=== PATIENT | male | born 1930 | race Caucasian/White ===

== ENCOUNTER → 2016-12-22 | Outpatient (CLI) | payer MEDICARE | END | disposition home or self-care (01) | LOC: GMAL 11:09 | PROVIDERS: ATTEND Family Medicine | DX: E03.8 Other specified hypothyroidism (principal) ==

== ENCOUNTER → 2017-01-13 | Outpatient (CLI) | payer MEDICARE ==
--- NOTE | 2017-01-13 11:50 | MRI ---
Study: MRI of the Brain, Internal Auditory Canal Protocol. Indication: HEADACHE. Right-sided hearing loss. Technique: Multiplanar, multi sequence MRI of the brain obtained with and without intravenous contrast utilizing the internal auditory canal protocol. Comparison: None. Findings: The bilateral internal auditory canals, cerebellopontine angles, and VII/VIII cranial nerve root complexes appear normal. No pathologic enhancement. No MRI evidence of acute ischemia, acute hemorrhage, mass, mass effect, midline shift, or extra-axial fluid collection. Ventricles are normal in configuration without hydrocephalus. Patchy elevated T2/FLAIR signal abnormality is seen within the periventricular and subcortical white matter. Although nonspecific, this finding is most consistent with chronic microvascular ischemic change. Global parenchymal volume loss noted as well. Midline structures are intact. Scattered paranasal sinus mucosal disease with opacification of the frontal sinuses and anterior ethmoid air cells. Large bilateral mastoid effusions. Osseous structures and soft tissues demonstrate normal signal characteristics. Impression: Normal MRI appearance of the bilateral internal auditory canals. Senescent changes. Large bilateral mastoid effusions. Scattered paranasal sinus mucosal disease. Electronically signed by: Nnamdi Palomo MD 01/13/2017 11:49 AM XRAY TECH
== END | disposition home or self-care (01) ==
LOC: MRI 07:53
PROVIDERS: ATTEND Family Medicine
DX: R51 Headache (principal)

== ENCOUNTER → 2017-02-14 | Outpatient (CLI) | payer MEDICARE | END | disposition home or self-care (01) | LOC: GMAL 10:41 | PROVIDERS: ATTEND Family Medicine | DX: E03.8 Other specified hypothyroidism (principal) ==

== ENCOUNTER → 2017-02-22 | Outpatient (CLI) | payer MEDICARE ==
--- NOTE | 2017-02-23 11:08 | US ---
EXAM DESCRIPTION: Extremity,Lower Rommel Arteries CLINICAL HISTORY: 86 years Male, PVD Grayscale, spectral Doppler and color Doppler imaging of the arteries within the right lower extremity was performed. No abrupt occlusion with any arterial vessel of the right or left lower extremity. Atherosclerotic disease is noted. Triphasic and biphasic waveforms noted within bilateral lower extremities. Peak systolic velocities are noted in likely within normal IMPRESSION: While there is atherosclerotic disease on today's study there is no abrupt occlusion on today's exam to account for patient's symptoms. Electronically signed by: Shabbir Damon MD 02/23/2017 11:08 AM CDT
== END | disposition home or self-care (01) ==
LOC: RAD 14:44
PROVIDERS: ATTEND Surgery
DX: I73.9 Peripheral vascular disease, unspecified (principal)

== ENCOUNTER → 2017-06-01 | Outpatient (CLI) | payer MEDICARE | LOC: GMAL 16:42 | PROVIDERS: ATTEND Family Medicine | DX: E03.8 Other specified hypothyroidism (principal); R60.0 Localized edema ==

== ENCOUNTER 2017-11-06 12:05 | Inpatient (IN) | payer MEDICARE ==
[2017-11-06] MEDS ORDERED: SODIUM CHLORIDE 0.9% 1000ML 1,000 ML IVS ONE (13:08)
--- NOTE | 2017-11-06 13:13 | ED.PDOC ---
History of Present Illness - General Chief Complaint: General Stated Complaint: Weakness, change in demeanor, R hand swelling Time Seen by Provider: 11/06/17 12:13 Source: RN notes reviewed, Vital Signs reviewed, family Exam Limitations: clinical condition - confused and very hard of hearing - History of Present Illness Initial Comments: reports that 4-5 days ago he started getting very confused, "in [place] ", along with frequent falls and difficulty with his balance. He also has a painful, swollen R forearm and hand from falling into a wall about 4 days ago. She reports normally he is "normal", no confusion, normal gait and normal activities of daily living w/o need for assistance. Now needs to hold onto someone just to walk down the [place]ez. Decreased appetite. Did start with a cold ~ 2 weeks ago. He is diabetic but reports his blood sugars at home have been 80-120's. Timing/Duration: getting worse Severity: severe Improving Factors: nothing Worsening Factors: movement Associated Symptoms: loss of appetite, malaise, weakness Allergies/Adverse Reactions: Allergies NO KNOWN ALLERGY Allergy (Verified 09/21/14 06:39) Home Medications: Ambulatory Orders Insulin Glargine 100U/ml [Lantus] 6 unit SUBCU DAILY 09/21/14 Furosemide [Lasix] 40 mg PO DAILY 11/06/17 Levothyroxine Sodium [Synthroid] 200 mcg PO DAILY 11/06/17 Potassium Chloride [Micro-K] 10 meq PO DAILY 11/06/17 Review of Systems - Review of Systems Constitutional: States: see HPI, malaise, weakness EENTM: States: no symptoms reported Respiratory: States: no symptoms reported Cardiology: States: no symptoms reported Gastrointestinal/Abdominal: States: no symptoms reported Musculoskeletal: States: see HPI Skin: States: no symptoms reported Neurological: States: see HPI, weakness, other - loss of balance and confusion Hematologic/Lymphatic: Denies: easy bleeding, easy bruising All other Systems: No Change from Baseline Past Medical History (General) - Patient Medical History Hx Seizures: No Hx Stroke: No Hx Asthma: No Hx of COPD: No Hx Cardiac Disorders: Yes Hx Congestive Heart Failure: No Hx Pacemaker: No Hx Hypertension: Yes Hx Thyroid Disease: Yes Hx Diabetes: Yes Hx Cancer: Yes - lymphoma Hx MRSA: No Surgical History: other - Vaccination History Hx Tetanus, Diphtheria Vaccination: Yes Hx Influenza Vaccination: No Hx Pneumococcal Vaccination: No - Social History Hx Tobacco Use: No - Quit around 1949 - social use Hx Alcohol Use: No Hx Substance Use: No Hx Physical Abuse: No Hx Emotional Abuse: No Family Medical History - Family History Father Family History: No Known Living Status: Age at (years of age): 70 Cause of : alzeimers Mother Living Status: Age at (years of age): 70 Hx Family Cancer: Yes - lung Physical Exam - Physical Exam General Appearance: Comfortable - but confused, Ill Appearing, Unkempt Ears, Nose, Throat: hearing decreased - extremely hard of hearing, other - dry mucous membranes Neck: supple, normal inspection Respiratory: lungs clear, normal breath sounds, no respiratory distress, no accessory muscle use Cardiovascular/Chest: regular rate, rhythm, no edema, no gallop, no murmur Gastrointestinal/Abdominal: normal bowel sounds, non tender, soft, no organomegaly, no pulsatile mass, hernia - easily reducable ventral hernia Extremity: normal range of motion, swelling - R forearm from elbow to fingers - swollen, warm, erythematous and tender Neurologic: disoriented x 3 Skin Exam: normal color, warm/dry Comments: Vital Signs 11/06/17 12:43 Temperature 98.9 F Pulse Rate [ 110 H Left Radial] Respiratory 22 Rate Blood Pressure 114/52 [Right Arm] Progress - Progress Progress: 11/06/17 14:57 Discussed with MAGNO Quezada - will admit for observation - Results/Orders Results/Orders: 11/06/17 13:08 IV Care:Saline Lock per Protoc QSHIFT 11/06/17 13:49 KCl 40 Meq/Water For Injection [Potassium 40meq in Water 100ml] 40 meq Premix Bag 1 bag IVPB ONCE Laboratory Results - last 24 hr 11/06/17 11/06/17 11/06/17 13:14 13:14 13:29 WBC 12.7 H RBC 4.84 Hgb 13.4 L Hct 39.1 L MCV 80.7 MCH 27.6 MCHC 34.2 RDW 14.7 H Plt Count 352 MPV 7.7 Absolute Neuts (auto) 12.30 H Absolute Lymphs (auto) 0.30 L Absolute Monos (auto) 0.10 L Absolute Eos (auto) 0.00 Absolute Basos (auto) 0.00 Neutrophils % 96.6 H Lymphocytes % 2.3 L Monocytes % 1.0 L Eosinophils % 0.0 L Basophils % 0.1 Sodium 139 Potassium 2.9 L Chloride 97 L Carbon Dioxide 28 Anion Gap 16.9 BUN 43 H Creatinine 1.77 H BUN/Creatinine Ratio 24.3 H Random Glucose 257 H Serum Osmolality 297.2 H Calcium 8.1 L Total Bilirubin 2.1 H* AST 73 H ALT 48 Alkaline Phosphatase 73 Serum Total Protein 6.4 Albumin 2.7 L Globulin 3.7 H Albumin/Globulin Ratio 0.7 L TSH 7.10 H Urine Color Yellow Urine Appearance Clear Urine pH 6.0 Ur Specific [place] 1.020 Urine Protein 100 H Urine Glucose (UA) 250 H Urine Ketones Trace Urine Blood Large H Urine Nitrite Negative Urine Bilirubin Small H Urine Urobilinogen 2.0 H Ur Leukocyte Esterase Negative Urine RBC 20-30 H Urine WBC 0 Ur Epithelial Cells 0 Urine Bacteria 0 - EKG/XRAY/CT XRAY: forearm - No fracture per Radiologist CT Ordered: Yes - Head: no acute changes - Additional EKG/XRAY/Consults XRAY #2: hand - No fracture per Rad Departure - Departure Clinical Impression: Confusion and disorientation, Dehydration, Hyperbilirubinemia, Hypokalemia UTI (urinary tract infection) Qualifiers: Urinary tract infection type: acute cystitis Hematuria presence: with hematuria Qualified Code(s): N30.01 - Acute cystitis with hematuria Time of Disposition: 14:57 Disposition: Admit Patient Condition: Poor Departure Forms: ED Discharge - Pt. Copy, Patient Portal Self Enrollment Referrals: Giorgio Escobedo III, MD [Primary Care Provider] - 1-2 Weeks Home Medications: Ambulatory Orders Insulin Glargine 100U/ml [Lantus] 6 unit SUBCU DAILY 09/21/14 Furosemide [Lasix] 40 mg PO DAILY 11/06/17 Levothyroxine Sodium [Synthroid] 200 mcg PO DAILY 11/06/17 Potassium Chloride [Micro-K] 10 meq PO DAILY 11/06/17 Decision To Admit - Decistion To Admit Decision to Admit Reason: Admit from ER Decision to Admit Date: 11/06/17 Decision to Admit Time: 14:55
[2017-11-06] MEDS ORDERED: KCL 40 MEQ/WATER FOR INJECTION 40 MEQ in PREMIX BAG 1 BAG IVPB ONE (13:49)
[2017-11-06] MEDS ORDERED: KCL 40 MEQ/WATER FOR INJECTION 100 ML IVPB ONE (14:04)
--- NOTE | 2017-11-06 14:32 | RAD ---
EXAM DESCRIPTION: Forearm,Right CLINICAL HISTORY: 87 years Male, tenderness swellling s/p fall COMPARISON: None. TECHNIQUE: AP and lateral views FINDINGS: Osteopenia. No fractures identified. There are vascular calcifications. IMPRESSION: No fractures Electronically signed by: Jeff Concepcion 11/06/2017 2:30 PM [facility]
--- NOTE | 2017-11-06 14:42 | RAD ---
EXAM DESCRIPTION: Hand,Right 3 Views CLINICAL HISTORY: 87 years Male, tenderness swellling s/p fall COMPARISON: None. TECHNIQUE: 3 views FINDINGS: Nonspecific sclerotic changes within distal radius and ulna. Likely chronic in nature. 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 No acute fractures are seen. Vascular calcifications. IMPRESSION: No acute fractures. Incidental findings as noted above Electronically signed by: Jeff Concepcion 11/06/2017 2:[address] [facility]
--- NOTE | 2017-11-06 14:48 | CT ---
EXAM DESCRIPTION: Head CLINICAL HISTORY: 87 years Male, confusion w/ frequent falls COMPARISON: None. TECHNIQUE: Axial imaging. No IV contrast. Sagittal and coronal reconstruction FINDINGS: Extensive periventricular white matter enteropathic changes. There is diffuse cortical atrophy. No masses are seen. There is no evidence of intracranial hemorrhage. Ventricular structures are nondilated. Mild bilateral ethmoid mucosal thickening, moderate mucosal thickening sphenoid sinus, moderate mucosal thickening left maxillary sinus, moderate mucosal thickening frontal sinuses. IMPRESSION: Diffuse cortical atrophy Extensive white matter microangiopathic changes. Sinus disease as referenced above Electronically signed by: Jeff Concepcion 11/06/2017 2:47 PM [facility]
--- NOTE | 2017-11-06 15:18 | HP ---
SUPERVISING PHYSICIAN: Simone Sotomayor M.D. CHIEF COMPLAINT: Increasing weakness with multiple falls and acute mental status change. HISTORY OF PRESENT ILLNESS: Mr. Marin is an 87 year-old male patient that was brought to the Emergency Room today by his because the patient was having 4 or 5 days of confusion. She quotes he was [place] and has been having frequent falls and difficulty with his balance. It was also noted that he had fallen and hit his arm at some point and his right forearm, hand and elbow were swollen for the last 4 days. His notes that the patient normally is not confused, has a normal gait and is able to do most of his daily activities without any assistance. He has now progressed to the point where he has to hold onto something just to walk and has a severe decreased appetite. In the Emergency Room, initial laboratory studies showed that he had a leukocytosis at 12,700 with a left shift. Hemoglobin 13.4, hematocrit 39.1. Chemistries showed mild hypokalemia with potassium 2.9 and renal insufficiency with a BUN of 43, creatinine 1.7. Also of note was a bilirubin that was elevated at 2.1 with AST 73. He also had hypothyroidism by history and is on supplementation, and it was noted on labs in the E. R. that his TSH was 7.1. Urinalysis showed a large amount of blood, bilirubin and urobilinogen along with glucose and protein with microscopic showing 20 to 30 RBCs, no WBCs, epithelials or bacteria were seen. On admission to the Emergency Room, he was shown to be afebrile with a temperature of 98.9. Blood pressure 114/52, heart rate 110 with saturation showing to be 90 on room air. A head CT was also completed during his stay in the E. R. and per radiology interpretation of a noncontrast CT there was note of diffuse cortical atrophy with extensive white matter microangiopathic changes along with sinus disease but no evidence of any intracranial hemorrhage or masses seen. He had a hand and forearm x-ray of the right upper extremity due to the ongoing cellulitis and recent fall with no evidence of acute fractures per radiology interpretation. The patient also has a history of type 2 diabetes mellitus and is on insulin therapy and on initial presentation to the Emergency Room showed a glucose of 257. Dr. Christopher, E. R. physician, requested that the patient be admitted to the hospital for further evaluation and ongoing treatment of the underlying dehydration as well as concerns for an infectious process with uncertain etiology. The patient now is going to be admitted to the Medical/ Surgical floor. He was admitted in stable condition. The patient was a poor historian and no one was available to provide a history, therefore most of the history was obtained from clinic charts. PAST MEDICAL HISTORY: 1. Hyperlipidemia. 2. Hypertension with grade 1 diastolic dysfunction and ejection fraction of 55 % on echo of May 2017. 3. Peripheral vascular disease. 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 5. Hepatitis in 1962. 6. [place] disease, a rare [id number] histiocytosis. 7. Type 2 diabetes mellitus on insulin therapy. 8. Hypothyroidism diagnosed in 1977 after an iodine 131 ablation with the patient on supplementation. 9. History of shingles to the left chest. 10. Non-Hodgkin's lymphoma diagnosed in 2006 treated initially with radiation and recurrence with diffuse lymphadenopathy as noted on CT scans in 2012 with treatment with Rituxan. 11. Macular degeneration. 12. 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 MEDICAL PROVIDERS: Oncologist - Dr. Rey Owens in [place] Primary care provider - Dr. Escobedo PAST SURGICAL HISTORY: 1. Bilateral cataract removal. 2. Bilateral carotid endarterectomy in 2005. 3. Right lymph node excision complicated by a seroma following radiation treatments for non-Hodgkin's lymphoma. 4. Left knee arthroscopy with partial medial meniscectomy and ablation chondroplasty in 2008. 5. 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 CURRENT MEDICATIONS: 1. Synthroid 0.2 mg 1 tablet daily. 2. Potassium chloride 10 mEq extended release 2 tablets daily. 3. Crestor 10 mEq 1/4 tablet daily. 4. Lantus 5 units subcue AM. 5. Lasix 40 mg tablets daily. 6. Vitamin B12 100 mcg every other day. 7. Omzu-wpm-kwonvxe iron supplementation. ALLERGIES: NO KNOWN DRUG ALLERGIES. FAMILY HISTORY: The patient's father is at age 81 secondary to diabetes and cardiovascular disease. Mother at age 69 from metastatic cancer of unknown origin. He had 3 sisters, 2 are from colon cancer and 1 from alcoholism, smoking, COPD and TB. He has several paternal uncles with diabetes and amputations. 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 He was in the [employer] from 1949 to 1953 serving in [facility] and [place]. He is and has 2 children. He resides in [place], [place]. He has a history of smoking 2 to 3 packs a day for 16 years and quit at age 35. He does have a history of drinking while he was in the , but is no longer drinking. REVIEW OF SYSTEMS: CONSTITUTIONAL: As noted in History of Present Illness, general malaise and weakness with multiple falls. In looking at his past admissions and current admission, he has had a weight loss of approximately 33 pounds over the last 3 years. HEENT: No acute changes, but has a history of hearing deficits with a mixed conductive and sensorineural hearing loss. No nasal drainage, nasal congestion , headaches, vision changes or sore throat. RESPIRATORY: Denies any shortness of breath, dyspnea, cough. CARDIOVASCULAR: Denies any chest pains, palpitations or syncopal episodes. GASTROINTESTINAL: Decreased appetite. Denies any nausea, vomiting, diarrhea, constipation or melena. MUSCULOSKELETAL: As noted in history of present illness, pain and swelling to right upper extremity secondary to a fall with some localized cellulitis. NEUROLOGIC: As noted in History of Present Illness with weakness and loss of balance and confusion. PHYSICAL EXAMINATION: VITAL SIGNS: Temperature 98.9, pulse 110, blood pressure 110/52, respirations 22, satting 90% on room air. Admission weight is 64.5 kg with a body mass index of 20.4. GENERAL: On admission to the Medical/Surgical floor, the patient appears to be comfortable. He is pleasantly confused and very unkempt and frail. Very malnourished in appearance. HEENT: He has decreased hearing bilaterally. Oropharynx shows severely dry mucous membranes but no lesions. NECK: Supple, non-tender with full range of motion. There was no jugular venous distention. CHEST: Lungs were clear to auscultation without any rhonchi, wheezing or rales. CARDIOVASCULAR: Regular rate and rhythm without any appreciable murmurs, gallops, or rubs. ABDOMEN: Thin, non-tender, soft with a pulsatile mass and hernia noted, a ventral hernia that is easily reducible with no notable pain or guarding or rebound tenderness. EXTREMITIES: Upper extremity right forearm and elbow and fingers are edematous , very erythematous and tender with no obvious skin breakdown. NEUROLOGIC: He is disoriented times three but pleasantly confused. Cranial nerves II-XII are grossly intact. Facial features were symmetrical. Extraocular movements are within normal limits. There was no notable nystagmus. LABORATORY: White count showed a leukocytosis of 12,700 with hemoglobin 13.4, hematocrit 39.1, platelet count 352,000. Differential did show a left shift. Chemistries showed hyponatremia with potassium 2.9, sodium 139, anion gap was 16 , BUN 43, creatinine 1.7, glucose 257, serum osmolality 297, calcium 8.1 but albumin was 2.7, magnesium 2.0. Total bilirubin was elevated at 2.1 with AST of 73 slightly elevated with a normal ALT, alkaline phosphatase was 73. Ammonia level was less than 6. Troponin was 0.05. BNP was elevated at 223 with TSH of 7.1. Pancreatic enzymes showed amylase at 26, lipase of less than 14. Urinalysis showed 100 protein, 250 glucose, large amount of blood, small bilirubin, 2.0 urobilinogen with microscopic showing 20 to 30 RBCs, no WBCs, epithelials or bacteria were noted. MICROBIOLOGY: Urine culture is pending. Blood culture is pending. Sputum culture pending. Strep screen pending. Influenza A and B by PCR pending. RADIOLOGY: X-rays of the right forearm and hand per radiology interpretation showed no acute findings of acute fractures or dislocations. Please see that report for more details. He also had a CT of the head without contrast and per radiology interpretation there was note of diffuse cortical atrophy with extensive white matter microangiopathic changes and sinus disease as noted. Refer to that report for full details. Chest x-ray after admission to the Medical/Surgical floor singe view chest per radiology interpretation showed prominence of right hilar shadow maybe secondary to vascular shadows, however recommended a CT chest to exclude a malignancy. There was also note of a scattered patchy airspace disease concerning for multifocal pneumonia. ASSESSMENT: 1. Leukocytosis with radiographic evidence concerning for multifocal pneumonia likely community acquired. 2. Severe dehydration secondary to poor oral intake and malnutrition. 3. Altered mental status secondary to dehydration and malnutrition complicated by diffuse cortical atrophy and extensive white matter microangiographic changes noted on CT. 4. Acute cystitis with microhematuria. 5. Multiple falls within the last week likely secondary to severe deconditioning, malnutrition and dehydration. 6. Cellulitis of the right arm and elbow secondary to acute trauma from a fall with no radiographic evidence of acute fractures. 7. Acute on chronic renal insufficiency with prerenal azotemia secondary to dehydration. 8. Elevated liver enzymes, uncertain etiology but possibly related to dehydration. 9. Hypothyroidism on supplementation with an elevated TSH. 10. Electrolyte imbalance with moderate hypokalemia. 11. Type 2 diabetes on insulin. 12. History of non-Hodgkin's lymphoma in 2006 with treatment with radiation and recurrence and diffuse lymphadenopathy in 2012 treated with Rituxan. 13. Hypertension with grade 1 diastolic dysfunction with an ejection fraction of 55% noted on echo in May 2017. 14. History of [place] disease, a rare mtv-Urkaixgiau-fmsl histiocytosis. 15. Macular degeneration, complications of type 2 diabetes mellitus. 16. 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 17. Severe pancreatic lipomatosis as noted on MRI colonography in December 2014 likely resulting in malabsorption and weight loss, poor appetite with the patient having decreased amylase and lipase and albumin on admission. 18. Weight loss of over 33 pounds within the last 3 years, uncertain etiology. 19. History of small volvulus with approximately 50 inches resection in 2013. PLAN: The patient is going to be admitted to the Medical/Surgical floor for further evaluation and ongoing treatment. Given that he has some radiographic evidence of a multifocal pneumonia in the presence of leukocytosis, I have started him on Rocephin initially with 2 grams to be followed-up with 2 grams every 24 hours as well as I will put him on some Azithromycin and coverage for the cellulitis as well as he has probably got a high risk for MRSA. He will be on vancomycin per Pharmacy protocol. In regards to his dehydration and malnutrition, I have started him on a banana bag with thiamine every 24 hours and his IV fluids will be half normal saline with 20 of potassium with total volume to run at 120 an hour, to reassess in the morning with his output. Given his severe dehydration and state of health on admission, a Hurt catheter will be placed to closely monitor his I's and O's. Will start him on insulin sliding scale per protocol. Will resume his home medications as appropriate once those have been verified and updated in the electronic medical records. He will be on DVT prophylaxis as per protocol. Blood cultures have been completed prior to antibiotic administration. Will await sputum cultures, Influenza and Strep cultures to further help target antibiotic therapy. At some point, he will need a Physical Therapy evaluation. In regards to his malnutrition, will encourage oral intake and start him on a high calorie diet, and possibly need to consider maybe starting him on some Megace for some assistance with his appetite. Will estimate his length of stay to be at least 2 to 3 days. Will plan to repeat laboratory studies in the morning as well as a chest x-ray. Given the findings of prominence of the right hilar shadow, recommendations for a CT to include malignancy will need to be pursued at some point. Certainly given his multiple co-morbidities, living status with a who is just as debilitated as he is and his multiple falls and ongoing health problems, certainly need to get Assistant To The Ceo on discharge planning with anticipation of probably needing to either discharge to a assisted facility, long term versus physical therapy rehab. Until discharge, will continue to monitor the patient closely and treat appropriately. #[id number] [facility]
[2017-11-06] MEDS ORDERED: DEXTROSE 50% 25 GM/50 ML SYG IV PRN (16:35)
[2017-11-06] MEDS ORDERED: GLUCAGON INJ 1 MG VIAL SUBCU PRN (16:35)
[2017-11-06] MEDS ORDERED: cefTRIAXone SODIUM 2 GM in SODIUM CHL 0.9% 100ML MINI-BAG 100 ML IVPB ONE (17:22)
[2017-11-06] MEDS: IV SET AND CAP CHANGE INJ INJ SCH (18:25)
[2017-11-06] MEDS ORDERED: SODIUM CHL 0.9% 100ML MINI-BAG 100 ML IVPB ONE (18:26)
[2017-11-06] MEDS ORDERED: VANCOMYCIN PER PHARMACY IVPB SCH (18:30)
--- NOTE | 2017-11-06 19:04 | PCM.CORE ---
Physician DVT/VTE - Nurse DVT Assessment & Total Each Risk Factor Represents 3 Points: Age over 75 years Each Risk Factor Represents 2 Points: Malignancy (present/past) Each Risk Factor is 1 Point: Varicose Veins/Edema Legs, Serious Lung disease ( pnemonia <1month, COPD, emphysema,etc) DVT Assessment Score: 7 - 5 or more Very High Risk Treatments: Early Ambulation *, Sequential Compression Device Pharmacological: Enoxaparin 40mg SQ Daily
[2017-11-06] MEDS ORDERED: MULTIPLE VITAMIN INJ 10 ML, THIAMINE HCL INJ 100 MG in SODIUM CHLORIDE 0.9% 1000ML 1,00... IVS SCH (19:30)
[2017-11-06] MEDS ORDERED: SODIUM CHLORIDE 0.9% 1000ML 1,000 ML ONE (19:38)
[2017-11-06] MEDS ORDERED: MULTIPLE VITAMIN 10 ML VIAL ONE (19:39)
[2017-11-06] MEDS ORDERED: THIAMINE HCL INJ 100 MG/ML VIAL ONE (19:39)
[2017-11-06] MEDS: KCL 20MEQ/0.45% NS 1,000 ML IVS PRN (20:03)
[2017-11-06] MEDS: SODIUM CHLORIDE 0.9% (FLUSH) 10 ML SYG IV PRN (20:04)
--- NOTE | 2017-11-06 20:05 | RAD ---
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 Patchy opacities are seen within both lungs, most prominent in the right upper lobe and left lower lobe. Prominent interstitial markings bilaterally. No pneumothorax or pleural effusion. Aortic atherosclerosis. Normal cardiac silhouette. Impression: Prominence of the right hilar shadow may be secondary to vascular shadows however CT chest is recommended to exclude malignancy. Scattered patchy airspace disease concerning for multifocal pneumonia. Electronically signed by: Jewel Lane MD 11/06/2017 8:04 PM SHUTTLE FITTING SUPERVISOR
[2017-11-06] MEDS ORDERED: SODIUM CHLORIDE 0.9% 250ML 250 ML ONE ×2 (20:18→21:01)
[2017-11-06] MEDS ORDERED: VANCOMYCIN HCL INJ 1,000 MG VIAL IVPB ONE (20:19)
[2017-11-06] MEDS ORDERED: AZITHROMYCIN IV 500 MG in SODIUM CHLORIDE 0.9% 250ML 250 ML IVPB SCH (20:30)
[2017-11-06] MEDS: ENOXAPARIN SODIUM 40 MG/0.4 ML SYG SUBCU SCH (20:40)
[2017-11-06] MEDS ORDERED: AZITHROMYCIN IV 500 MG VIAL IVPB ONE (21:01)
[2017-11-06] MEDS: INSULIN LISPRO 100 UNITS/ML PEN SUBCU SCH (21:15)
[2017-11-06] MEDS: VANCOMYCIN HCL INJ 1,000 MG in SODIUM CHLORIDE 0.9% 250ML 250 ML IVPB SCH (21:26)
[2017-11-06] MEDS ORDERED: ALBUTEROL SULFATE 2.5 MG/3 ML VIAL NEB PRN (21:44)
--- NOTE | 2017-11-07 06:25 | RAD ---
EXAM: Single view chest. INDICATION: Pneumonia. COMPARISON: Chest x-ray: 11/06/2017. FINDINGS: Again noted is a right upper lobe airspace opacity with left basilar interstitial opacities. The heart size is stable. There is no pneumothorax or pleural effusion. The bones are demineralized. IMPRESSION: Multifocal pneumonia Electronically signed by: Catracho Moss MD 11/07/2017 6:24 AM BACKREST ASSEMBLER Workstation: [id number]
[2017-11-07] MEDS: INSULIN LISPRO 100 UNITS/ML PEN SUBCU SCH ×4 (07:37→21:21)
[2017-11-07] MEDS ORDERED: SODIUM CHL 0.9% 100ML MINI-BAG 100 ML IVPB ONE (08:29)
[2017-11-07] MEDS: ALBUTEROL SULFATE 2.5 MG/3 ML VIAL NEB SCH ×4 (08:41→20:50)
[2017-11-07] MEDS: cefTRIAXone SODIUM 2 GM in SODIUM CHL 0.9% 100ML MINI-BAG 100 ML IVPB SCH (09:23)
[2017-11-07] MEDS: LEVOTHYROXINE SODIUM 0.1 MG TAB PO SCH (09:27)
[2017-11-07] MEDS ORDERED: KCL 20MEQ/WATER FOR INJ 100ML 20 MEQ in PREMIX BAG 1 BAG IVPB ONE (12:06)
--- NOTE | 2017-11-07 12:57 | PN ---
DATE: 11/07/17 SUBJECTIVE: The patient is now on his first day in the hospital after being admitted through the Emergency Room with severe confusion, altered level of consciousness, falling and pneumonia process. He has required significant antibiotic coverage to include vancomycin, Rocephin and Azithromycin. 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 He is currently residing at home where he lives with his . He is currently much more alert and in less distress today compared to last evening. OBJECTIVE: Afebrile, pulse 92, blood pressure 121/68, respiratory rate 20, pulse oximetry 90% down to 88% on room air. Intake and outgo fairly good. LUNGS: Have some rhonchi in both bases, especially the left lung base and the right mid lung field. The patient is much more alert today than yesterday. His states that he is much more normal, but still is a long ways from being entirely normal as treatment continues. LABORATORY: White count is down to 10,700 with 96% neutrophils, hemoglobin 11.5. Chemistry shows potassium down from 2.9 down to 2.7 even after potassium supplementation. CO2 of 25, BUN 33, creatinine 1.28, glucose varies between 99 and 207, calcium 7.1 while albumin is low at 2.1. AST of 46, BNP of 223, TSH of 7.1. Ammonia is zero. Urinalysis shows hematuria, proteinuria and glycosuria. Strep swab negative. Influenza A and B negative. Urine culture preliminarily shows insignificant colony count of mixed nicolle. Significant findings of a positive blood culture on aerobic tubes only with gram positive cocci suggesting a bacteremic state probably from the underlying pneumonia. RADIOLOGY: Chest x-ray does how multifocal pneumonia especially involving the right upper lobe and the left base. ASSESSMENT: 1. Acute bilateral pneumonia involving right upper lobe and left lower lobe community acquired with associated bacteremia with cultures pending with the patient having been started on vancomycin, Rocephin and Azithromycin. 2. Frequent falls. 3. Significant hypokalemia requiring repeat supplementation to continue. 4. Diabetes mellitus type 2 on insulin therapy. 5. Altered level of consciousness showing some improvement. 6. Hypothyroidism on supplementation. 7. Congestive heart failure with diastolic dysfunction and ejection fraction of 55% in May 2017. 8. 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 9. Severe dehydration secondary to poor intake and malnutrition requiring fluid supplementation. 10. Significant leukocytosis probably secondary to the underlying infection bacteremic state. 11. Hematuria. 12. Cellulitis of the right arm and elbow with recent trauma and fall with no evidence of radiographic evidence of bony fractures treated with vancomycin and other antibiotics and showing some slow improvement this morning. 13. Chronic renal insufficiency with acute exacerbation with prerenal azotemia secondary to dehydration. 14. Mild elevation of liver enzymes. 15. History of non-Hodgkin's lymphoma in 2006 with radiation and other chemotherapies received. 16. 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 17. History of macular degeneration possibly as a complication of the diabetes mellitus. 18. 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 19. 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 20. History of weight loss of 33 pounds within the last 3 years. 21. 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 PLAN: Will continue vigorous therapy with multiple antibiotic coverages including vancomycin, Rocephin and Azithromycin. Will slowly increase his activity level and include physical therapy rehabilitation for improved activity of daily living functioning. Close observation with the patient being critically ill at this time. #[id number] [facility]
[2017-11-07] MEDS ORDERED: KCL 20MEQ/WATER FOR INJ 100ML 100 ML IVPB ONE (13:30)
[2017-11-07] MEDS: BIFIDOBACTERIUM INFANTIS 4 MG CAP PO SCH (13:33)
[2017-11-07] MEDS: POTASSIUM CHLORIDE 10 MEQ TAB PO SCH ×2 (13:33→17:10)
[2017-11-07] MEDS: INSULIN DETEMIR 100 UNITS/ML PEN SUBCU SCH (13:33)
[2017-11-07] MEDS: KCL 20MEQ/0.45% NS 1,000 ML IVS PRN (13:40)
[2017-11-07] MEDS ORDERED: AZITHROMYCIN IV 500 MG VIAL IVPB ONE (17:07)
[2017-11-07] MEDS ORDERED: SODIUM CHLORIDE 0.9% 250ML 250 ML ONE (17:07)
[2017-11-07] MEDS ORDERED: AZITHROMYCIN IV 500 MG in SODIUM CHLORIDE 0.9% 250ML 250 ML IVPB SCH (18:00)
[2017-11-07] MEDS ORDERED: SODIUM CHLORIDE 0.9% 1000ML 1,000 ML ONE (19:12)
[2017-11-07] MEDS ORDERED: THIAMINE HCL INJ 100 MG/ML VIAL ONE (19:12)
[2017-11-07] MEDS ORDERED: MULTIPLE VITAMIN 10 ML VIAL ONE (19:13)
[2017-11-07] MEDS: SODIUM CHLORIDE 0.9% (FLUSH) 10 ML SYG IV PRN (19:43)
[2017-11-07] MEDS: ACETAMINOPHEN 325 MG TAB PO PRN (19:43)
[2017-11-07] MEDS: ENOXAPARIN SODIUM 40 MG/0.4 ML SYG SUBCU SCH (21:21)
[2017-11-07] MEDS ORDERED: MULTIPLE VITAMIN INJ 10 ML, THIAMINE HCL INJ 100 MG in SODIUM CHLORIDE 0.9% 1000ML 1,00... IVS SCH (23:00)
[2017-11-08] MEDS: KCL 20MEQ/0.45% NS 1,000 ML IVS PRN ×2 (02:33→18:38)
[2017-11-08] MEDS: ACETAMINOPHEN 325 MG TAB PO PRN (05:20)
[2017-11-08] MEDS: LEVOTHYROXINE SODIUM 0.1 MG TAB PO SCH (05:59)
[2017-11-08] MEDS: INSULIN LISPRO 100 UNITS/ML PEN SUBCU SCH ×4 (07:35→21:04)
[2017-11-08] MEDS ORDERED: SODIUM CHL 0.9% 100ML MINI-BAG 100 ML IVPB ONE (07:43)
[2017-11-08] MEDS: POTASSIUM CHLORIDE 10 MEQ TAB PO SCH ×3 (08:19→17:38)
[2017-11-08] MEDS: ALBUTEROL SULFATE 2.5 MG/3 ML VIAL NEB SCH ×4 (08:38→20:59)
[2017-11-08] MEDS: cefTRIAXone SODIUM 2 GM in SODIUM CHL 0.9% 100ML MINI-BAG 100 ML IVPB SCH (08:47)
[2017-11-08] MEDS ORDERED: SODIUM CHLORIDE 0.9% 250ML 250 ML ONE (08:52)
[2017-11-08] MEDS ORDERED: VANCOMYCIN HCL INJ 1,000 MG VIAL IVPB ONE (08:52)
[2017-11-08] MEDS: INSULIN DETEMIR 100 UNITS/ML PEN SUBCU SCH (08:55)
[2017-11-08] MEDS: VANCOMYCIN HCL INJ 1,000 MG in SODIUM CHLORIDE 0.9% 250ML 250 ML IVPB SCH (10:06)
[2017-11-08] MEDS: MULTIPLE VITAMINS W/ MINERALS 1 EA TAB PO SCH (11:00)
[2017-11-08] MEDS: BIFIDOBACTERIUM INFANTIS 4 MG CAP PO SCH ×3 (12:04→20:47)
--- NOTE | 2017-11-08 13:36 | PN ---
DATE: 11/08/17 SUBJECTIVE: The family is present. The patient is a little more drowsy today than yesterday. Still severely deaf with decreased ability to hear even when communicated at large volume. His appetite is only fair and is encouraged to improve by encouragement. He was unable to participate with physical therapy. He did sit up on the side of the bed, but he required some stabilization and some support even with sitting up from his underlying weakness. OBJECTIVE: VITAL SIGNS: Afebrile. Pulse 71. Blood pressure 117/69. Pulse oximetry 95% on room air. GENERAL: The patient is able to smile, but is noticeably somewhat drowsy and quite weak today. Whether this is an effect of medications. The patient's serious illness is noted and also is a significant factor for the underlying fatigue state that he presents with. LUNGS: Some rhonchi, especially the left base. HEART: Regular. ABDOMEN: Soft. EXTREMITIES: Right arm is less swollen and erythematous than before, but is still very sore to the touch. LABORATORY: White count 12,400, hemoglobin 11.7 with 96% neutrophils noted. Chemistries showed potassium is up to 3.0, BUN 24 which is down from 43. Sugars were 136 this morning, up to 320 after breakfast. Calcium 7.1 with albumin very low at 1.9. Cultures show urine growing a gram positive cocci looking like staph aureus. Reviewing with the nurse reveals the patient has not been circumcised and had significant debris requiring ongoing cleaning now for several days around the urethral meatus, no doubt contributing to the positive urine culture with staph aureus. 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 Blood cultures, all four tubes, are positive with what appears to be a strep pneumoniae species, currently under treatment with Zyvox, Merrem and doxycycline. Sensitivity by tomorrow. Chest x-ray in the morning. ASSESSMENT: 1. Acute bilateral pneumonia involving right upper lobe and left lower lobe, community acquired, with associated bacteremia with cultures showing a strep pneumoniae. Sensitivity to follow. Currently being treated with vancomycin, Rocephin and azithromycin. 2. Frequent falls with weakness. 3. Significant hypokalemia requiring repeat supplementation to continue, showing some improvement. 4. Diabetes mellitus, type 2, on insulin therapy, requiring continued sliding scale. 5. Altered level of consciousness, showing some improvement. 6. Hypothyroidism, on supplementation. 7. History of congestive heart failure with diastolic dysfunction and ejection fraction of 55% in May 2017. 8. 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 9. Severe dehydration secondary to poor intake and malnutrition with ongoing supplementation of fluids. 10. Significant leukocytosis, probably secondary to the underlying infection and bacteremic state. 11. Hematuria. 12. Cellulitis of the right arm and elbow, showing some improvement, due to a recent trauma and a fall. 13. Chronic renal insufficiency with acute exacerbation with prerenal azotemia secondary to dehydration. 14. Mild elevation of liver enzymes. 15. History of non-Hodgkin's lymphoma in 2006 with radiation and other chemotherapies received. 16. 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 17. History of macular degeneration, possibly as a complication of the diabetes mellitus. 18. 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 19. 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 20. History of weight loss of 33 pounds within the last 3 years. 21. 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 PLAN: The patient will require ongoing parenteral therapy for a period of time , especially because of the risk of subacute bacterial endocarditis with all blood cultures being positive with strep pneumoniae, probably of a lung origin. Sensitivity should be available tomorrow which will assist in being able to narrow down and focus antibiotic coverage to be continued. Consider Swing Bed for ongoing rehabilitation for strengthening as well as continuation of antibiotic therapy and consider up to a two week trial of parenteral antibiotic therapy to assist with the ongoing recovery. The patient may eventually require detention placement and Slag Dumper assisting with discussion with the family on that process. #[id number] [facility]
[2017-11-08] MEDS ORDERED: traMADol HCL 50 MG TAB PO PRN (14:14)
[2017-11-08] MEDS ORDERED: POTASSIUM CHLORIDE 10 MEQ TAB PO ONE (14:30)
[2017-11-08] MEDS: AZITHROMYCIN 250 MG TAB PO SCH (17:40)
[2017-11-08] MEDS: ENOXAPARIN SODIUM 40 MG/0.4 ML SYG SUBCU SCH (20:47)
[2017-11-09] MEDS: LEVOTHYROXINE SODIUM 0.1 MG TAB PO SCH (06:01)
--- NOTE | 2017-11-09 06:59 | RAD ---
EXAM DESCRIPTION: Chest,1 View CLINICAL HISTORY: Pneumonia COMPARISON: 11/07/2017 FINDINGS: Single frontal view of the chest. Atherosclerotic calcification of the thoracic aorta. Heart is not enlarged. Persistent right upper lobe and left lower lobe airspace opacity. No pneumothorax or definite pleural effusion. No displaced rib fractures identified. Upper abdominal soft tissues are unremarkable. IMPRESSION: 1. No significant interval change in right upper lobe and left lower lobe airspace opacity concerning for pneumonia. Continued radiographic follow-up to resolution recommended. Electronically signed by: Thong Zhong 11/09/2017 6:58 AM [facility]
[2017-11-09] MEDS: INSULIN LISPRO 100 UNITS/ML PEN SUBCU SCH ×4 (07:34→21:41)
[2017-11-09] MEDS ORDERED: SODIUM CHL 0.9% 100ML MINI-BAG 100 ML IVPB ONE (07:41)
[2017-11-09] MEDS: KCL 20MEQ/0.45% NS 1,000 ML IVS PRN ×2 (07:46→22:08)
[2017-11-09] MEDS: cefTRIAXone SODIUM 2 GM in SODIUM CHL 0.9% 100ML MINI-BAG 100 ML IVPB SCH (07:49)
[2017-11-09] MEDS: BIFIDOBACTERIUM INFANTIS 4 MG CAP PO SCH ×3 (08:25→21:34)
[2017-11-09] MEDS: POTASSIUM CHLORIDE 10 MEQ TAB PO SCH ×3 (08:25→17:27)
[2017-11-09] MEDS: MULTIPLE VITAMINS W/ MINERALS 1 EA TAB PO SCH (08:25)
[2017-11-09] MEDS: ALBUTEROL SULFATE 2.5 MG/3 ML VIAL NEB SCH ×4 (08:34→20:25)
[2017-11-09] MEDS: INSULIN DETEMIR 100 UNITS/ML PEN SUBCU SCH (08:48)
[2017-11-09] MEDS: IV SET AND CAP CHANGE INJ INJ SCH (17:02)
[2017-11-09] MEDS: AZITHROMYCIN 250 MG TAB PO SCH (17:27)
[2017-11-09] MEDS ORDERED: HALOPERIDOL LACTATE INJ 5 MG/ML VIAL IM ONE (17:37)
--- NOTE | 2017-11-09 20:53 | PN ---
DATE: 11/09/17 SUPERVISING PHYSICIAN: Jewel Toth MD SUBJECTIVE: Apparently through the night the patient was fairly confused and continued to try to get out of bed. He was given some Haldol and Ativan. This morning he is in his bed with his , but refuses to eat. He remains afebrile. I did discuss with the patient's , who has Power of Cardiovascular Operating Room Nurse, his code status. After explaining to her the difference in a full code and a do not resuscitate, she noted that the patient's wishes would be to be a DNR at this point. That paperwork has been completed and awaiting signatures. OBJECTIVE: T max is 98.4, pulse 86, blood pressure 105/54, respirations 20, satting 94% on nasal cannula at 3 liters. I's and O's show a negative balance of 1535 with 1340 in, 2875 out. Weight is 65.7 kg. CHEST: Lungs continue with some faint rhonchi notable more so on the left than the right. HEART: Regular rate and rhythm. ABDOMEN: Soft. EXTREMITIES: Right arm remains swollen with some erythema noted but improved greatly since admission. It does remain tender to touch. LABORATORY: White count did show an elevated today to 13.4 with a continued left shift. Hemoglobin 11.6, hematocrit 34.7 which has been stable. Platelets 356,000. Chemistries showed mild hypokalemia with potassium 3.3, BUN 17, creatinine 1.06, glucose 84. Liver function showed to be within normal limits. Albumin was severely low at 1.9. MICROBIOLOGY: His blood cultures were positive all bottles for Streptococcus pneumoniae with the same sensitivity pattern showing sensitive to all by Erythromycin. The final urine culture showed Staphylococcus epidermidis. RADIOLOGY: Repeat chest x-ray today per radiology interpretation shows no significant interval change in the right upper lobe and left lower lobe airspace opacity concerning for pneumonia. ASSESSMENT: 1. Acute bilateral pneumonia involving right upper and left lower lobes, community acquired, with associated bacteremia with cultures showing a strep pneumoniae. Sensitive to all but Erythromycin. 2. Frequent falls secondary to severe deconditioning and weakness. 3. Significant hypokalemia requiring ongoing supplementation showing improvement. 4. Diabetes mellitus, type 2, on insulin therapy, requiring continued sliding scale. 5. Altered level of consciousness slowly improving. 6. Hypothyroidism, on supplementation. 7. History of congestive heart failure with diastolic dysfunction and ejection fraction of 55% in May 2017. 8. 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 9. Severe dehydration secondary to poor intake and malnutrition with ongoing supplementation of fluids. 10. Significant leukocytosis showing some worsening probably secondary to his underlying bacteremia. 11. Hematuria, unknown etiology. 12. Cellulitis of the right arm and elbow, showing improvement with vancomycin with a trauma being secondary to a fall. 13. Chronic renal insufficiency with acute exacerbation with prerenal azotemia secondary to dehydration, improved with fluids. 14. Mild elevation of liver enzymes now returning to baseline status likely secondary to underlying dehydration. 15. History of non-Hodgkin's lymphoma in 2006 with radiation and other chemotherapies received. 16. 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 17. History of macular degeneration, possibly as a complication of the diabetes mellitus. 18. 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 19. 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 20. History of weight loss of 33 pounds within the last 3 months. 21. 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 PLAN: I was able to talk to Dr. Ackerman today in regards to the final cultures results and the bacteremia. She recommended that we stop all antibiotics except Ceftriaxone and continue with treatment with intention of treating for at least 2 weeks. Will continue with antibiotic coverage and aggressive pulmonary hygiene. Will encourage nutritional supplements to help with his deconditioning and malnutrition. At this point, consideration for possible Swing Bed versus fpc placement is in the best interest of the patient as he is very debilitated and deconditioned secondary to his underlying ongoing illness and ongoing chronic illnesses. Until discharge, will continue to monitor and treat appropriately. Dr. Hopper was available for consultation. #[id number] [facility]
[2017-11-09] MEDS: ENOXAPARIN SODIUM 40 MG/0.4 ML SYG SUBCU SCH (21:35)
[2017-11-10] MEDS: LEVOTHYROXINE SODIUM 0.1 MG TAB PO SCH (06:04)
[2017-11-10] MEDS: ALBUTEROL SULFATE 2.5 MG/3 ML VIAL NEB SCH ×4 (08:10→20:50)
[2017-11-10] MEDS ORDERED: SODIUM CHL 0.9% 100ML MINI-BAG 100 ML IVPB ONE (08:33)
[2017-11-10] MEDS: INSULIN LISPRO 100 UNITS/ML PEN SUBCU SCH ×4 (08:40→21:13)
[2017-11-10] MEDS: cefTRIAXone SODIUM 2 GM in SODIUM CHL 0.9% 100ML MINI-BAG 100 ML IVPB SCH (09:00)
[2017-11-10] MEDS: MULTIPLE VITAMINS W/ MINERALS 1 EA TAB PO SCH (09:02)
[2017-11-10] MEDS: POTASSIUM CHLORIDE 10 MEQ TAB PO SCH ×3 (09:02→15:58)
[2017-11-10] MEDS: INSULIN DETEMIR 100 UNITS/ML PEN SUBCU SCH (09:03)
[2017-11-10] MEDS: BIFIDOBACTERIUM INFANTIS 4 MG CAP PO SCH ×3 (09:04→21:12)
[2017-11-10] MEDS: KCL 20MEQ/0.45% NS 1,000 ML IVS PRN (12:07)
[2017-11-10] MEDS: AZITHROMYCIN 250 MG TAB PO SCH (16:58)
--- NOTE | 2017-11-10 20:14 | PN ---
DATE: 11/10/17 SUPERVISING PHYSICIAN: Jewel Toth M.D. SUBJECTIVE: The patient remains confused with a very poor appetite. He does show some Sundowners late in the afternoon and becomes very loud and attempts to get out of bed at times. He does remain weak and is unable to actually get out of bed. He remains afebrile. He is unable to participate fully with physical therapy at this point. OBJECTIVE: VITAL SIGNS: T max 98.4, pulse 91, blood pressure 147/89, respirations 16, satting 97% on nasal cannula at 2 liters. I's and O's show a negative balance of 477 with 2423 in, 2900 out. Weight is 65.5 kg. CHEST: Lungs remain fairly clear except for just slight rhonchi notable more prominent on the left than the right. HEART: Regular rate and rhythm. ABDOMEN: Soft, non -tender. EXTREMITIES: Right arm shows essentially no swelling. It does remain tender to touch but shows no areas of cellulitis. NEUROLOGIC: He is lethargic and follows basic simple commands but answers questions with incomprehensible words. LABORATORY: White count today has normalized down to 9,800 with hemoglobin 12.1 , hematocrit 36.3, platelet count 351,000. Differential shows a continued left shift. Chemistries show normal electrolytes with potassium 3.6. Glucoses are well controlled between 141 and 205. Calcium shows to be low at 7.3 but his last albumin was 1.9. Correcting the calcium shows it to be 8.5. MICROBIOLOGY: No additional microbiology specimens have been submitted since admission. All blood cultures showed Streptococcus pneumoniae. Please see that report for details. RADIOLOGY: Repeat chest x-ray today per radiology interpretation shows no significant interval change in the right upper lobe and left lower lobe, airspace opacity concerning for pneumonia. ASSESSMENT: 1. Bilateral pneumonia involving the right upper and left lower lobes community acquired with associated bacteremia with all cultures showing Streptococcus pneumoniae sensitive to all by Erythromycin with the patient being on Rocephin. 2. Frequent falls secondary to deconditioning and weakness. 3. Significant hypokalemia resolved after supplementation. 4. Diabetes mellitus type 2 on insulin therapy showing to be stable. 5. Altered level of consciousness slowly improving likely related to microvascular changes as noted on previous MRI exacerbated by underlying metabolic encephalopathy with consideration for possible posterior ischemia with a initial CT showing no acute changes with the patient showing slow improvement despite aggressive treatment. 6. Hypothyroidism on supplementation. 7. History of congestive heart failure with diastolic dysfunction and ejection fraction of 55% as noted on echo in May 2017. 8. 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 Consider MRI at discharge once on Swing Bed if the patient continues with decreasing sensorium. 9. Severe dehydration secondary to decreased oral intake and malnutrition prior to admission requiring ongoing supplementation of IV fluids with the patient continuing to refuse any significant oral nutrition. 10. Hematuria, unknown etiology. 11. Chronic renal insufficiency with acute exacerbation with prerenal azotemia showing improvement with fluids. 12. Mild elevation of liver enzymes returning to baseline status likely related to underlying dehydration. 13. History of non-Hodgkin's lymphoma in 2006 with radiation and other chemotherapies received. 14. 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 15. History of macular degeneration, possibly as a complication of the diabetes mellitus. 16. 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 17. 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 18. History of weight loss of approximately 33 pounds within the last 3 months possibly more according to the family. 19. 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 PLAN: Will continue antibiotic therapy today with Rocephin with anticipation of continuing for a duration of 2 weeks to treat the underlying pneumonia and bacteremia. He continues with coverage for the pneumonia with Rocephin and continued breathing treatments. Anticipation that we will discharge to Swing Bed once the patient shows to be clinically stable medically and no longer refusing any acute care other than antibiotics. Again the patient is showing some clinical stabilization with fluids and antibiotic therapy, although his mentation remains decreased. Once discharged and admitted to Swing Bed, certainly we could pursue an MRI of the brain to further evaluate his mentation. Until then, will continue to monitor the patient closely and treat appropriately. Dr. Hopper is available for consultation. #[id number] and [id number] [facility]
[2017-11-10] MEDS: ENOXAPARIN SODIUM 40 MG/0.4 ML SYG SUBCU SCH (21:12)
[2017-11-11] MEDS: KCL 20MEQ/0.45% NS 1,000 ML IVS PRN (01:02)
[2017-11-11] MEDS: LEVOTHYROXINE SODIUM 0.1 MG TAB PO SCH (06:04)
[2017-11-11] MEDS ORDERED: SODIUM CHL 0.9% 100ML MINI-BAG 100 ML IVPB ONE (07:07)
[2017-11-11] MEDS: ALBUTEROL SULFATE 2.5 MG/3 ML VIAL NEB SCH ×4 (07:14→20:24)
[2017-11-11] MEDS: INSULIN LISPRO 100 UNITS/ML PEN SUBCU SCH ×4 (07:18→21:04)
[2017-11-11] MEDS: POTASSIUM CHLORIDE 10 MEQ TAB PO SCH ×3 (07:19→17:15)
[2017-11-11] MEDS: cefTRIAXone SODIUM 2 GM in SODIUM CHL 0.9% 100ML MINI-BAG 100 ML IVPB SCH (07:31)
[2017-11-11] MEDS: INSULIN DETEMIR 100 UNITS/ML PEN SUBCU SCH (08:56)
[2017-11-11] MEDS: BIFIDOBACTERIUM INFANTIS 4 MG CAP PO SCH ×3 (09:01→21:04)
[2017-11-11] MEDS: MULTIPLE VITAMINS W/ MINERALS 1 EA TAB PO SCH (09:02)
--- NOTE | 2017-11-11 09:04 | RAD ---
Study: Single Frontal View of the Chest. Indication:pneumonia Comparison: November 09, 2017. Impression: Mild cardiomegaly. Thoracic aorta tortuous. Persistent rounded opacification right upper lung, minimally improved as well as bibasilar opacities. Continued follow-up to resolution recommended. No pleural effusion or pneumothorax. Osteopenia. If this is a new finding, DEXA scan recommended as well as evaluation for possible osteoporosis treatment. Electronically signed by: Nnamdi Palomo MD 11/11/2017 9:[address] [facility]
[2017-11-11] MEDS ORDERED: MULTIPLE VITAMIN INJ 10 ML, THIAMINE HCL INJ 100 MG in SODIUM CHLORIDE 0.9% 1000ML 1,00... IVS SCH (10:00)
[2017-11-11] MEDS: DEXTROSE 5% IVS SCH (10:59)
[2017-11-11] MEDS: THIAMINE HCL IVS SCH (10:59)
[2017-11-11] MEDS: MULTIPLE VITAMIN IVS SCH (10:59)
[2017-11-11] MEDS ORDERED: DEXTROSE 5% 1000ML 1,000 ML IVS ONE (11:19)
[2017-11-11] MEDS ORDERED: MULTIPLE VITAMIN 10 ML VIAL ONE (11:20)
[2017-11-11] MEDS ORDERED: THIAMINE HCL INJ 100 MG/ML VIAL ONE (11:20)
[2017-11-11] MEDS ORDERED: MAGNESIUM SULFATE PREMIX 2GM 2 GM in PREMIX BAG 1 BAG IVPB ONE (12:58)
[2017-11-11] MEDS ORDERED: MAGNESIUM SULFATE PREMIX 2GM 50 ML IVPB ONE (13:03)
[2017-11-11] MEDS: KCL 20MEQ/D5 1/2NS 1,000 ML IVS PRN (14:06)
[2017-11-11] MEDS ORDERED: cloNIDine HCL 0.1 MG TAB PO ONE (14:13)
--- NOTE | 2017-11-11 18:41 | PN ---
DATE: 11/11/17 SUPERVISING PHYSICIAN: Jewel Toth M.D. SUBJECTIVE: The patient remains pretty somnolent and has required Ativan at night as he gets quite agitated. I discussed with the family that his decreased activity throughout the day may be related to the Sundowners and the Ativan at night. I told them that we would try to not give the Ativan tonight to see how he does and encourage them to sit with him to help redirect should he become confused or combative. He is still refusing to eat or drink any significant oral intake. He remains afebrile. He has no nausea, vomiting or any diarrhea. OBJECTIVE: VITAL SIGNS: Temperature 97.7, pulse 83, blood pressure 96/53, respirations 23, satting 92% on nasal cannula at rest on 2 liters. I's and O's show a negative balance of 2020 with 2880 in, 4900 out. Weight is 66.2 kg. CHEST: Lungs are clear to auscultation today. No notable rhonchi, wheezing or rales. They are diminished towards the bases. HEART: Regular rate and rhythm. ABDOMEN: Soft, non-tender. EXTREMITIES: Right arm shows no actual swelling today. There is some Tegaderm in place over some of the skin tears. He does remain quite tender with any kind of movement of the arm or attempt to move his fingers. NEUROLOGIC: He remains lethargic and when he is aroused with stimulation, he becomes somewhat combative and confused, and tries to crawl out of bed and speak in incomprehensible words. LABORATORY: Electrolytes today show to be within normal limits with a 4.1 potassium, BUN 15, creatinine 0.79. Glucose has been anywhere from 150 to 205. Calcium remains low at 7.2 with total protein of 1.7 correcting calcium to 8.0. Magnesium is low at 1.5. MICROBIOLOGY: No additional microbiology specimens are submitted. Again, he had all blood cultures were positive for Streptococcus pneumoniae. RADIOLOGY: Repeat chest x-ray today two view chest per radiology interpretation shows persistent rounded opacification in the right upper lung minimally improved as well as bibasilar opacities. No pleural effusion or pneumothorax were noted. ASSESSMENT: 1. Bilateral pneumonia involving the right upper and left lower lobes community acquired with associated bacteremia secondary to Streptococcus pneumoniae infection with sensitivity showing to be sensitive to all by Erythromycin with the patient showing good response with parenteral antibiotics to include Rocephin. 2. Frequent falls secondary to severe deconditioning and weakness. 3. Electrolyte imbalance to include hypokalemia with hypomagnesemia likely related to kidney function decline. 4. Diabetes mellitus type 2 on insulin therapy showing to be stable. 5. Altered level of consciousness showing minimal improvement possibly related to microvascular changes as noted on previous MRI in January exacerbated by underlying metabolic encephalopathy with consideration with possible posterior cerebellum injury not seen on CT initially on admission with the patient showing slow improvement despite aggressive clinical treatment. 6. Hypothyroidism on supplementation. 7. History of congestive heart failure with diastolic dysfunction and ejection fraction of 55% as noted on echo in May 2017. 8. 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 Again, consideration for MRI once admitted to Swing Bed in efforts to further investigate his decreased sensorium and imbalance. 9. Hematuria, uncertain etiology. 10. Severe dehydration secondary to decreased oral intake and malnutrition prior to admission requiring ongoing supplementation of IV fluids with the patient continuing to refuse any significant oral nutrition. 11. Chronic renal insufficiency with acute exacerbation with prerenal azotemia showing improvement with IV fluids. 12. Mild elevation of liver enzymes returning to baseline status likely related to underlying dehydration. 13. History of non-Hodgkin's lymphoma in 2006 with radiation and other chemotherapies received. 14. 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 15. History of macular degeneration, possibly as a complication of the diabetes mellitus. 16. 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 17. 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 18. History of weight loss of approximately 33 pounds within the last 3 months possibly more as noted by family members. 19. 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 PLAN: Will continue with antibiotic therapy to include Rocephin, again for a total treatment of 2 weeks for the underlying bacteremia. In regards to his magnesium, will replace this by IV in consideration for giving calcium gluconate to help correct the calcium levels. I have also started him on multivitamin infusion with Dextrose 5% in efforts to provide some sort of calorie intake and to prevent him from going into a fasting state. Once he shows a rise in his blood sugar, certainly will start him on a basal insulin with Levemir and continue to cover as per protocol. Considerations were for Clinimix, however per Pharmacy, Clinimix is not in stock. It is on national back order. At some point in this gentleman's care, we need to discuss with the family possibly of some hospice care as his prognosis is certainly very poor. I did start the discussion. The thought is to continue with aggressive care until we get to the point where he is not progressing forward, however I did discuss the fact that he has no nutrition to speak of and at some point we either need to consider maybe putting in a PEG tube or an NG tube to provide some additional nutrition certainly for gastric protection as he is more likely going to become a more complicated case with no oral intake and certainly will not rehab to any extent. The family is very nice and very on board with decisions at this point. I told them we could continue treatment at this point , but again consider future management. Will continue to monitor the patient closely with anticipation of discharging to Swing Bed hopefully tomorrow or Tuesday once he shows to be clinically stable and no longer requiring acute management. On Swing Bed, will continue antibiotics again for the duration of 2 weeks and get a PT consultation in an attempt to do some physical therapy. Until then, will continue to monitor and treat appropriately. Dr. Hopper is available for consultation. [facility][id number] [facility]
[2017-11-11] MEDS: ENOXAPARIN SODIUM 40 MG/0.4 ML SYG SUBCU SCH (21:04)
[2017-11-12] MEDS: KCL 20MEQ/D5 1/2NS 1,000 ML IVS PRN (05:51)
[2017-11-12] MEDS: LEVOTHYROXINE SODIUM 0.1 MG TAB PO SCH (06:02)
--- NOTE | 2017-11-12 06:43 | RAD ---
Clinical History : pneumonia , MAIN Exam : Portable AP view of the chest 11/12/2017 7:00 AM SALES INCENTIVE ANALYST Comparisons : Portable AP view of the chest November 11, 2017 Findings : There is stable right upper lobe airspace opacity measuring 5.1 x 3.2 cm. There is increasing confluent left lower lobe airspace disease. The rest the lungs remain largely clear without pleural effusion. The heart is normal in size. The mediastinal contours are normal in appearance. The patient is osteopenic which limits evaluation of the thoracic spine. The ribs and shoulders are grossly normal. Limited evaluation of the upper abdomen demonstrates no gross abnormalities. Impression: Stable right upper lobe and increasing left basilar airspace disease. Electronically signed by: Lexx Rodríguez MD 11/12/2017 6:42 AM SALES INCENTIVE ANALYST
[2017-11-12] MEDS ORDERED: SODIUM CHL 0.9% 100ML MINI-BAG 100 ML IVPB ONE (07:12)
[2017-11-12] MEDS: ALBUTEROL SULFATE 2.5 MG/3 ML VIAL NEB SCH ×4 (07:24→19:49)
[2017-11-12] MEDS: INSULIN LISPRO 100 UNITS/ML PEN SUBCU SCH ×4 (07:44→20:57)
[2017-11-12] MEDS: POTASSIUM CHLORIDE 10 MEQ TAB PO SCH ×3 (07:45→16:53)
[2017-11-12] MEDS: BIFIDOBACTERIUM INFANTIS 4 MG CAP PO SCH ×3 (08:03→20:57)
[2017-11-12] MEDS: MULTIPLE VITAMINS W/ MINERALS 1 EA TAB PO SCH (08:03)
[2017-11-12] MEDS: cefTRIAXone SODIUM 2 GM in SODIUM CHL 0.9% 100ML MINI-BAG 100 ML IVPB SCH (08:04)
[2017-11-12] MEDS ORDERED: INSULIN DETEMIR 100 UNITS/ML PEN SUBCU SCH ×2 (09:00→21:00)
[2017-11-12] MEDS ORDERED: DEXTROSE 5% 1000ML 1,000 ML IVS ONE (10:35)
[2017-11-12] MEDS ORDERED: MULTIPLE VITAMIN 10 ML VIAL ONE (10:36)
[2017-11-12] MEDS ORDERED: THIAMINE HCL INJ 100 MG/ML VIAL ONE (10:36)
[2017-11-12] MEDS: DEXTROSE 5% IVS SCH (10:42)
[2017-11-12] MEDS: MULTIPLE VITAMIN IVS SCH (10:42)
[2017-11-12] MEDS: THIAMINE HCL IVS SCH (10:42)
--- NOTE | 2017-11-12 13:08 | PN ---
DATE: 11/12/17 SUBJECTIVE: The patient is sleeping though he is arousable. He is still extremely [id number] but in some ways he looks more alert today than recently. He ate fairly good for supper last night and it all depends upon the food that he eats. His family is encouraged to bring special food from home to assist with his nutrition. The is present and is a good help in his ongoing care. The patient will require a total of 2 weeks of antibiotic therapy currently on Ceftriaxone 1 gram every 12 hours for the significant Streptococcus pneumoniae bacteremia. OBJECTIVE: LUNGS: Still some rhonchi especially in the bases. HEART: Tones are regular. The patient is very weak, very [id number]. ABDOMEN: Soft. Encouraged to move extremities and breathe deeply. Respiratory hygiene and bronchodilators continue in an effort to assist in secretion clearing. He is now on some D5 as well as Levemir and this is reduced a little bit because of some low sugars recently noted. ASSESSMENT: 1. Bilateral pneumonia involving the right upper and left lower lobes community acquired with associated bacteremia secondary to Streptococcus pneumoniae infection with sensitivity showing to be sensitive to all by Erythromycin with the patient showing good response with parenteral antibiotics to include Rocephin. 2. Frequent falls secondary to severe deconditioning and weakness. 3. Electrolyte imbalance to include hypokalemia with hypomagnesemia likely related to kidney function decline. 4. Diabetes mellitus type 2 on insulin therapy showing to be stable. 5. Altered level of consciousness showing minimal improvement possibly related to microvascular changes as noted on previous MRI in January exacerbated by underlying metabolic encephalopathy with consideration with possible posterior cerebellum injury not seen on CT initially on admission with the patient showing slow improvement despite aggressive clinical treatment. 6. Hypothyroidism on supplementation. 7. History of congestive heart failure with diastolic dysfunction and ejection fraction of 55% as noted on echo in May 2017. 8. 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 Again, consideration for MRI once admitted to Swing Bed in efforts to further investigate his decreased sensorium and imbalance. 9. Hematuria, uncertain etiology. 10. Severe dehydration secondary to decreased oral intake and malnutrition prior to admission requiring ongoing supplementation of IV fluids with the patient continuing to refuse any significant oral nutrition. 11. Chronic renal insufficiency with acute exacerbation with prerenal azotemia showing improvement with IV fluids. 12. Mild elevation of liver enzymes returning to baseline status likely related to underlying dehydration. 13. History of non-Hodgkin's lymphoma in 2007 with radiation and other chemotherapies received. 14. History of Erdheim-Wolverine disease, a rare non-Langerhans cell histiocytosis. 15. History of macular degeneration, possibly as a complication of the diabetes mellitus. 16. 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 17. 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 18. History of weight loss of approximately 33 pounds within the last 3 months possibly more as noted by family members. 19. 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 PLAN: I anticipate Swing Bed status in the morning. The family is to be offered a larger room and at this time they would prefer to keep the same room that they have. He is to continue with his close observation of his sugar levels. Special attention to nutritional input. His Levemir is decreased to a lower level because of subsequently lowering of his sugar, especially with his not eating. The patient is a DNR. Anticipate Swing Bed status to be continued for a total of 2 weeks of antibiotic therapy which will imply at least another week of antibiotic therapy after being placed on Swing Bed as of tomorrow. #[id number] [facility]
[2017-11-12] MEDS: IV SET AND CAP CHANGE INJ INJ SCH (16:54)
[2017-11-12] MEDS ORDERED: SODIUM CHLORIDE 0.9% 250ML 250 ML ONE (17:17)
[2017-11-12] MEDS ORDERED: SODIUM CHLORIDE 0.9% 250ML 250 ML IVS ONE (17:18)
[2017-11-12] MEDS ORDERED: SODIUM CHL 0.9% 50ML MIN-BAG+ 50 ML IVPB ONE (20:31)
[2017-11-12] MEDS ORDERED: cefTRIAXone SODIUM 1 GM VIAL ONE (20:32)
[2017-11-12] MEDS: ENOXAPARIN SODIUM 40 MG/0.4 ML SYG SUBCU SCH (20:57)
[2017-11-12] MEDS: cefTRIAXone SODIUM 1 GM in SODIUM CHL 0.9% 50ML MIN-BAG+ 50 ML IVPB SCH (20:57)
[2017-11-13] MEDS: KCL 20MEQ/D5 1/2NS 1,000 ML IVS PRN (00:37)
[2017-11-13] MEDS: LEVOTHYROXINE SODIUM 0.1 MG TAB PO SCH (06:10)
[2017-11-13] MEDS ORDERED: SODIUM CHL 0.9% 50ML MIN-BAG+ 50 ML IVPB ONE (06:33)
[2017-11-13] MEDS ORDERED: cefTRIAXone SODIUM 1 GM VIAL ONE (06:34)
[2017-11-13 07:16] VITALS: BP 106/67; TEMP 96.9
[2017-11-13] MEDS: INSULIN LISPRO 100 UNITS/ML PEN SUBCU SCH (07:54)
[2017-11-13] MEDS: POTASSIUM CHLORIDE 10 MEQ TAB PO SCH (07:54)
[2017-11-13] MEDS: ALBUTEROL SULFATE 2.5 MG/3 ML VIAL NEB SCH (08:12)
[2017-11-13] MEDS: BIFIDOBACTERIUM INFANTIS 4 MG CAP PO SCH (09:01)
[2017-11-13] MEDS: cefTRIAXone SODIUM 1 GM in SODIUM CHL 0.9% 50ML MIN-BAG+ 50 ML IVPB SCH (09:02)
[2017-11-13] MEDS: MULTIPLE VITAMINS W/ MINERALS 1 EA TAB PO SCH (09:02)
[2017-11-13] MEDS: THIAMINE HCL IVS SCH (11:12)
[2017-11-13] MEDS: MULTIPLE VITAMIN IVS SCH (11:12)
[2017-11-13] MEDS: DEXTROSE 5% IVS SCH (11:12)
[2017-11-13 11:35] VITALS: O2SAT 93
--- NOTE | 2017-11-13 15:06 | DS ---
DISCHARGE DIAGNOSIS: 1. Bilateral pneumonia involving the right upper and left lower lobes community acquired with associated bacteremia secondary to Streptococcus pneumoniae infection with sensitivity showing to be sensitive to all by Erythromycin with the patient showing good response with parenteral antibiotics to include Rocephin. 2. Frequent falls secondary to severe deconditioning and weakness. 3. Electrolyte imbalance to include hypokalemia with hypomagnesemia likely related to kidney function decline. 4. Diabetes mellitus type 2 on insulin therapy showing to be stable. 5. Altered level of consciousness showing minimal improvement possibly related to microvascular changes as noted on previous MRI in January exacerbated by underlying metabolic encephalopathy with consideration with possible posterior cerebellum injury not seen on CT initially on admission with the patient showing slow improvement despite aggressive clinical treatment. 6. Hypothyroidism on supplementation. 7. History of congestive heart failure with diastolic dysfunction and ejection fraction of 55% as noted on echo in May 2017. 8. 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 Again, consideration for MRI once admitted to Swing Bed in efforts to further investigate his decreased sensorium and imbalance. 9. Hematuria, uncertain etiology. 10. Severe dehydration secondary to decreased oral intake and malnutrition prior to admission requiring ongoing supplementation of IV fluids with the patient continuing to refuse any significant oral nutrition. 11. Chronic renal insufficiency with acute exacerbation with prerenal azotemia showing improvement with IV fluids. 12. Mild elevation of liver enzymes returning to baseline status likely related to underlying dehydration. 13. History of non-Hodgkin's lymphoma in 2006 with radiation and other chemotherapies received. 14. 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 15. History of macular degeneration, possibly as a complication of the diabetes mellitus. 16. 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 17. 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 18. History of weight loss of approximately 33 pounds within the last 3 months possibly more as noted by family members. 19. 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 HISTORY OF PRESENT ILLNESS: This 87 year-old white male was found to have had increasing confusion and disability beginning at least 10 to 14 days before his admission to the hospital on 11/06/17. He came into the hospital severely ill in the Emergency Room and was found to have bilateral pneumonia. Blood cultures were obtained and all 4 tubes of the double blood culture specimens turned out to be positive for Streptococcus pneumoniae. He also had a Staphylococcus epidermidis infection of his urinary tract with the urine eventually clearing on gross examination and was probably related to the poor hygiene of a non-circumcised prepuce and urethral meatus. He was poorly conscious with altered level of consciousness at the time of admission. He had been falling recently at home. He had almost stopped eating. He was started initially on Rocephin and azithromycin for the underlying pneumonia treatment. His condition slowly showed some stabilization but it took close to 7 days of active treatment before he was able to look around and be able to participate in conversation though still extremely deaf. He was able to get out of the bed and sit in a chair, and will require ongoing significant physical therapy rehabilitation to strengthen and to get him confident and competent enough to be able to safely return home. He was subsequently changed and discharged from Med/Surg on 11/13/17 and admitted to Swing Bed for an additional 7 days for a total of 14 days of parenteral IV therapy for the significant gram positive bacteremia as a result of the bilateral pneumonia process. He will require intensive ongoing care and treatment and support. PAST MEDICAL HISTORY: 1. Hyperlipidemia. 2. Hypertension with grade 1 diastolic dysfunction and ejection fraction of 55 % on echo of May 2017. 3. Peripheral vascular disease. 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 5. Hepatitis in 1962. 6. Erdheim-Madison disease, a rare yeb-Lafzxxrtdi-nzna histiocytosis. 7. Type 2 diabetes mellitus on insulin therapy. 8. Hypothyroidism diagnosed in 1977 after an iodine 131 ablation with the patient on supplementation. 9. History of shingles to the left chest. 10. Non-Hodgkin's lymphoma diagnosed in 2006 treated initially with radiation and recurrence with diffuse lymphadenopathy as noted on CT scans in 2012 with treatment with Rituxan. 11. Macular degeneration. 12. 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 MEDICAL PROVIDERS: Oncologist - Dr. Rey Owens in [place] Primary care provider - Dr. Escobedo PAST SURGICAL HISTORY: 1. Bilateral cataract removal. 2. Bilateral carotid endarterectomy in 2005. 3. Right lymph node excision complicated by a seroma following radiation treatments for non-Hodgkin's lymphoma. 4. Left knee arthroscopy with partial medial meniscectomy and ablation chondroplasty in 2008. 5. 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 CURRENT MEDICATIONS: 1. Synthroid 0.2 mg 1 tablet daily. 2. Potassium chloride 10 mEq extended release 2 tablets daily. 3. Crestor 10 mEq 1/4 tablet daily. 4. Lantus 5 units subcue AM. 5. Lasix 40 mg tablets daily. 6. Vitamin B12 100 mcg every other day. 7. Dqhn-sem-hzyqojk iron supplementation. ALLERGIES: NO KNOWN DRUG ALLERGIES. FAMILY HISTORY: The patient's father is at age 81 secondary to diabetes and cardiovascular disease. Mother at age 69 from metastatic cancer of unknown origin. He had 3 sisters, 2 are from colon cancer and 1 from alcoholism, smoking, COPD and TB. He has several paternal uncles with diabetes and amputations. 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 He was in the [employer] from 1949 to 1953 serving in [facility] and [place]. He is and has 2 children. He resides in [place], [place]. He has a history of smoking 2 to 3 packs a day for 16 years and quit at age 35. He does have a history of drinking while he was in the , but is no longer drinking. REVIEW OF SYSTEMS: CONSTITUTIONAL: As noted in History of Present Illness, general malaise and weakness with multiple falls. In looking at his past admissions and current admission, he has had a weight loss of approximately 33 pounds over the last 3 years. HEENT: No acute changes, but has a history of hearing deficits with a mixed conductive and sensorineural hearing loss. No nasal drainage, nasal congestion , headaches, vision changes or sore throat. RESPIRATORY: Denies any shortness of breath, dyspnea, cough. CARDIOVASCULAR: Denies any chest pains, palpitations or syncopal episodes. GASTROINTESTINAL: Decreased appetite. Denies any nausea, vomiting, diarrhea, constipation or melena. MUSCULOSKELETAL: As noted in history of present illness, pain and swelling to right upper extremity secondary to a fall with some localized cellulitis. NEUROLOGIC: As noted in History of Present Illness with weakness and loss of balance and confusion. PHYSICAL EXAMINATION: VITAL SIGNS: See vitals. GENERAL: The patient at the time of discharge was more alert and able to communicate even though extremely ttfq-mu-avdsvdy with hearing slightly better on the left ear compared to the right. He has no hearing assistance or hearing aids available at this time and the family is encouraged to secure them if at all possible. LUNGS: Have some rhonchi with the patient coughing occasionally and clearing secretions from the upper airways. No significant rales. HEART: Tones are regular. ABDOMEN: Soft. No significant organomegaly is evident but there is some firmness in the epigastric region. EXTREMITIES: Quite weak with some diminished muscle tone. He is able to get up out of the bed and sit on the side of the bed and transfer with assistance to the chair. Saturation drops into the mid 80s on room air requiring oxygen which will need to be repeated and further ambulation studies to assist with the termination of degree of oxygen requirements when he is eventually discharged home. LABORATORY: White count was up to 13,400 with 93% neutrophils, down to 6,900 at the time of discharge. Hemoglobin dropped from 13.4 to 9.9. Chemistry showed potassium from 2.2 up to 3.8 at the time of discharge. BUN initially was elevated at 43 down to 14 at discharge. Creatinine initially was 1.77 down to 0.92 at discharge. Calcium was also low at 7.1 but albumin also very low at 1.7. Urinalysis showed pyuria, hematuria and culture did show Staphylococcus epidermidis. Blood cultures all 4 tubes showed Streptococcus pneumoniae with sensitivity to Ceftriaxone which was utilized during the treatment as a parenteral administration. Strep was negative. Influenza A and B was also negative. RADIOLOGY: Initial chest x-ray on admission showed a multifocal pneumonia and right hilar shadow prominence suggesting followup. Chest x-ray at the time of discharge revealed stable right upper lobe opacification with some slight increasing of the left lower lobe airspace disease process. Marked osteopenia was present. HOSPITAL COURSE: The patient's condition remained very tenuous and he was very fragile and had decreased level of consciousness during most of his initial Med/ Surg hospital stay. He was showing some improvement on the morning of discharge to Swing Bed which will be observed closely as increased activity and rehabilitation is to continue. He was ready for continued Swing Bed rehabilitation on the day of discharge. PLAN: The patient will be transferred to Swing Bed for the next 7 or 8 days to complete a 14 day treatment of parenteral Rocephin therapy due to the Streptococcus pneumoniae bacteremia and associated pneumonia. Will require intensive physical therapy rehabilitation to be able to safely return home after treatment course. Discharge planning in progress. If condition is not able to safely return home, then further options, including a penitentiary facility or rehab hospital continuation of treatment to be decided. See the home medications in the Swing Bed orders for continuation of orders. #[id number] [facility]
== END 2017-11-13 11:10 | disposition swing bed (61) | DRG 194 ==
LOC: ER 12:05 → OBSVTOIN 15:16 → MS 15:16
PROVIDERS: ADMIT Nurse Practitioner Family; ATTEND Emergency Medicine
DX: J13 Pneumonia due to Streptococcus pneumoniae (principal); E46 Unspecified protein-calorie malnutrition; N30.01 Acute cystitis with hematuria; L03.113 Cellulitis of right upper limb; I13.0 Hypertensive heart and chronic kidney disease with heart failure and stage 1 through stage 4 chronic kidney disease, or unspecified chronic kidney disease; I50.32 Chronic diastolic (congestive) heart failure; R78.81 Bacteremia; E86.0 Dehydration; R29.6 Repeated falls; R74.8 Abnormal levels of other serum enzymes; N18.9 Chronic kidney disease, unspecified; E03.9 Hypothyroidism, unspecified; E87.6 Hypokalemia; E11.22 Type 2 diabetes mellitus with diabetic chronic kidney disease; E11.39 Type 2 diabetes mellitus with other diabetic ophthalmic complication; H35.30 Unspecified macular degeneration; H90.6 Mixed conductive and sensorineural hearing loss, bilateral; E88.89 Other specified metabolic disorders; E78.5 Hyperlipidemia, unspecified; E11.51 Type 2 diabetes mellitus with diabetic peripheral angiopathy without gangrene; E83.42 Hypomagnesemia; I65.02 Occlusion and stenosis of left vertebral artery; Z66 Do not resuscitate; R46.0 Very low level of personal hygiene; Z92.3 Personal history of irradiation; Z79.4 Long term (current) use of insulin; Z85.72 Personal history of non-Hodgkin lymphomas; Z87.891 Personal history of nicotine dependence; Z79.899 Other long term (current) drug therapy; Z68.20 Body mass index [BMI] 20.0-20.9, adult

== ENCOUNTER 2017-11-13 12:00 | Inpatient (IN) | payer MEDICARE ==
[2017-11-13] MEDS ORDERED: ALBUTEROL SULFATE 2.5 MG/3 ML VIAL NEB ONE (12:41)
[2017-11-13] MEDS ORDERED: ACETAMINOPHEN 500 MG TAB PO PRN (12:44)
[2017-11-13] MEDS ORDERED: GLUCAGON INJ 1 MG VIAL SUBCU PRN (12:44)
[2017-11-13] MEDS ORDERED: MAGNESIUM HYDROXIDE 30 ML UD PO PRN (12:44)
[2017-11-13] MEDS ORDERED: LEVALBUTEROL NEBS 1.25 MG/3 ML VIAL NEB PRN (12:44)
[2017-11-13] MEDS ORDERED: SODIUM PHOS/BIPHOS ENEMA ADULT 133 ML BTTL PR PRN (12:44)
[2017-11-13] MEDS ORDERED: DEXTROSE 50% 25 GM/50 ML SYG IV PRN (12:44)
[2017-11-13] MEDS ORDERED: SODIUM CHLORIDE 0.9% (FLUSH) 10 ML SYG IV PRN (13:07)
[2017-11-13] MEDS: ALBUTEROL SULFATE 2.5 MG/3 ML VIAL NEB SCH ×3 (13:07→20:50)
[2017-11-13] MEDS: IV SET AND CAP CHANGE INJ INJ SCH (13:21)
[2017-11-13] MEDS: MULTIPLE VITAMINS W/ MINERALS 1 EA TAB PO SCH (13:21)
[2017-11-13] MEDS: BIFIDOBACTERIUM INFANTIS 4 MG CAP PO SCH ×2 (13:21→21:06)
[2017-11-13] MEDS: INSULIN LISPRO 100 UNITS/ML PEN SUBCU SCH ×3 (13:22→21:06)
--- NOTE | 2017-11-13 15:07 | HP ---
DISCHARGE DIAGNOSIS: 1. Bilateral pneumonia involving the right upper and left lower lobes community acquired with associated bacteremia secondary to Streptococcus pneumoniae infection with sensitivity showing to be sensitive to all by Erythromycin with the patient showing good response with parenteral antibiotics to include Rocephin. 2. Frequent falls secondary to severe deconditioning and weakness. 3. Electrolyte imbalance to include hypokalemia with hypomagnesemia likely related to kidney function decline. 4. Diabetes mellitus type 2 on insulin therapy showing to be stable. 5. Altered level of consciousness showing minimal improvement possibly related to microvascular changes as noted on previous MRI in January exacerbated by underlying metabolic encephalopathy with consideration with possible posterior cerebellum injury not seen on CT initially on admission with the patient showing slow improvement despite aggressive clinical treatment. 6. Hypothyroidism on supplementation. 7. History of congestive heart failure with diastolic dysfunction and ejection fraction of 55% as noted on echo in May 2017. 8. 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 Again, consideration for MRI once admitted to Swing Bed in efforts to further investigate his decreased sensorium and imbalance. 9. Hematuria, uncertain etiology. 10. Severe dehydration secondary to decreased oral intake and malnutrition prior to admission requiring ongoing supplementation of IV fluids with the patient continuing to refuse any significant oral nutrition. 11. Chronic renal insufficiency with acute exacerbation with prerenal azotemia showing improvement with IV fluids. 12. Mild elevation of liver enzymes returning to baseline status likely related to underlying dehydration. 13. History of non-Hodgkin's lymphoma in 2006 with radiation and other chemotherapies received. 14. 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 15. History of macular degeneration, possibly as a complication of the diabetes mellitus. 16. 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 17. 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 18. History of weight loss of approximately 33 pounds within the last 3 months possibly more as noted by family members. 19. 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 HISTORY OF PRESENT ILLNESS: This 87 year-old white male was found to have had increasing confusion and disability beginning at least 10 to 14 days before his admission to the hospital on 11/06/17. He came into the hospital severely ill in the Emergency Room and was found to have bilateral pneumonia. Blood cultures were obtained and all 4 tubes of the double blood culture specimens turned out to be positive for Streptococcus pneumoniae. He also had a Staphylococcus epidermidis infection of his urinary tract with the urine eventually clearing on gross examination and was probably related to the poor hygiene of a non-circumcised prepuce and urethral meatus. He was poorly conscious with altered level of consciousness at the time of admission. He had been falling recently at home. He had almost stopped eating. He was started initially on Rocephin and azithromycin for the underlying pneumonia treatment. His condition slowly showed some stabilization but it took close to 7 days of active treatment before he was able to look around and be able to participate in conversation though still extremely deaf. He was able to get out of the bed and sit in a chair, and will require ongoing significant physical therapy rehabilitation to strengthen and to get him confident and competent enough to be able to safely return home. He was subsequently changed and discharged from Med/Surg on 11/13/17 and admitted to Swing Bed for an additional 7 days for a total of 14 days of parenteral IV therapy for the significant gram positive bacteremia as a result of the bilateral pneumonia process. He will require intensive ongoing care and treatment and support. PAST MEDICAL HISTORY: 1. Hyperlipidemia. 2. Hypertension with grade 1 diastolic dysfunction and ejection fraction of 55 % on echo of May 2017. 3. Peripheral vascular disease. 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 5. Hepatitis in 1962. 6. Erdheim-[place] disease, a rare llq-Mhcgadcjoi-sjkt histiocytosis. 7. Type 2 diabetes mellitus on insulin therapy. 8. Hypothyroidism diagnosed in 1977 after an iodine 131 ablation with the patient on supplementation. 9. History of shingles to the left chest. 10. Non-Hodgkin's lymphoma diagnosed in 2006 treated initially with radiation and recurrence with diffuse lymphadenopathy as noted on CT scans in 2012 with treatment with Rituxan. 11. Macular degeneration. 12. 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 MEDICAL PROVIDERS: Oncologist - Dr. Rey Owens in [place] Primary care provider - Dr. Escobedo PAST SURGICAL HISTORY: 1. Bilateral cataract removal. 2. Bilateral carotid endarterectomy in 2005. 3. Right lymph node excision complicated by a seroma following radiation treatments for non-Hodgkin's lymphoma. 4. Left knee arthroscopy with partial medial meniscectomy and ablation chondroplasty in 2008. 5. 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 CURRENT MEDICATIONS: 1. Synthroid 0.2 mg 1 tablet daily. 2. Potassium chloride 10 mEq extended release 2 tablets daily. 3. Crestor 10 mEq 1/4 tablet daily. 4. Lantus 5 units subcue AM. 5. Lasix 40 mg tablets daily. 6. Vitamin B12 100 mcg every other day. 7. Fpsl-tem-cbqomik iron supplementation. ALLERGIES: NO KNOWN DRUG ALLERGIES. FAMILY HISTORY: The patient's father is at age 81 secondary to diabetes and cardiovascular disease. Mother at age 69 from metastatic cancer of unknown origin. He had 3 sisters, 2 are from colon cancer and 1 from alcoholism, smoking, COPD and TB. He has several paternal uncles with diabetes and amputations. 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 He was in the [employer] from 1949 to 1953 serving in [facility] and [place]. He is and has 2 children. He resides in [place], [place]. He has a history of smoking 2 to 3 packs a day for 16 years and quit at age 35. He does have a history of drinking while he was in the , but is no longer drinking. REVIEW OF SYSTEMS: CONSTITUTIONAL: As noted in History of Present Illness, general malaise and weakness with multiple falls. In looking at his past admissions and current admission, he has had a weight loss of approximately 33 pounds over the last 3 years. HEENT: No acute changes, but has a history of hearing deficits with a mixed conductive and sensorineural hearing loss. No nasal drainage, nasal congestion , headaches, vision changes or sore throat. RESPIRATORY: Denies any shortness of breath, dyspnea, cough. CARDIOVASCULAR: Denies any chest pains, palpitations or syncopal episodes. GASTROINTESTINAL: Decreased appetite. Denies any nausea, vomiting, diarrhea, constipation or melena. MUSCULOSKELETAL: As noted in history of present illness, pain and swelling to right upper extremity secondary to a fall with some localized cellulitis. NEUROLOGIC: As noted in History of Present Illness with weakness and loss of balance and confusion. PHYSICAL EXAMINATION: VITAL SIGNS: See vitals. GENERAL: The patient at the time of discharge was more alert and able to communicate even though extremely nnwg-[id number] with hearing slightly better on the left ear compared to the right. He has no hearing assistance or hearing aids available at this time and the family is encouraged to secure them if at all possible. LUNGS: Have some rhonchi with the patient coughing occasionally and clearing secretions from the upper airways. No significant rales. HEART: Tones are regular. ABDOMEN: Soft. No significant organomegaly is evident but there is some firmness in the epigastric region. EXTREMITIES: Quite weak with some diminished muscle tone. He is able to get up out of the bed and sit on the side of the bed and transfer with assistance to the chair. Saturation drops into the mid 80s on room air requiring oxygen which will need to be repeated and further ambulation studies to assist with the termination of degree of oxygen requirements when he is eventually discharged home. LABORATORY: White count was up to 13,400 with 93% neutrophils, down to 6,900 at the time of discharge. Hemoglobin dropped from 13.4 to 9.9. Chemistry showed potassium from 2.2 up to 3.8 at the time of discharge. BUN initially was elevated at 43 down to 14 at discharge. Creatinine initially was 1.77 down to 0.92 at discharge. Calcium was also low at 7.1 but albumin also very low at 1.7. Urinalysis showed pyuria, hematuria and culture did show Staphylococcus epidermidis. Blood cultures all 4 tubes showed Streptococcus pneumoniae with sensitivity to Ceftriaxone which was utilized during the treatment as a parenteral administration. Strep was negative. Influenza A and B was also negative. RADIOLOGY: Initial chest x-ray on admission showed a multifocal pneumonia and right hilar shadow prominence suggesting followup. Chest x-ray at the time of discharge revealed stable right upper lobe opacification with some slight increasing of the left lower lobe airspace disease process. Marked osteopenia was present. HOSPITAL COURSE: The patient's condition remained very tenuous and he was very fragile and had decreased level of consciousness during most of his initial Med/ Surg hospital stay. He was showing some improvement on the morning of discharge to Swing Bed which will be observed closely as increased activity and rehabilitation is to continue. He was ready for continued Swing Bed rehabilitation on the day of discharge. PLAN: The patient will be transferred to Swing Bed for the next 7 or 8 days to complete a 14 day treatment of parenteral Rocephin therapy due to the Streptococcus pneumoniae bacteremia and associated pneumonia. Will require intensive physical therapy rehabilitation to be able to safely return home after treatment course. Discharge planning in progress. If condition is not able to safely return home, then further options, including a nursing home facility or rehab hospital continuation of treatment to be decided. See the home medications in the Swing Bed orders for continuation of orders. #[id number] [facility]
[2017-11-13] MEDS ORDERED: cefTRIAXone SODIUM 1 GM VIAL ONE (19:51)
[2017-11-13] MEDS ORDERED: SODIUM CHL 0.9% 50ML MIN-BAG+ 50 ML IVPB ONE (19:51)
[2017-11-13] MEDS: cefTRIAXone SODIUM 1 GM in SODIUM CHL 0.9% 50ML MIN-BAG+ 50 ML IVPB SCH (21:05)
[2017-11-13] MEDS: SODIUM CHLORIDE 0.9% (FLUSH) 10 ML SYG IV SCH (21:12)
[2017-11-14] MEDS ORDERED: OMEPRAZOLE CAP 20 MG CAP ONE (02:58)
[2017-11-14] MEDS ORDERED: LEVOTHYROXINE SODIUM 0.1 MG TAB ONE (02:59)
[2017-11-14] MEDS: OMEPRAZOLE CAP 20 MG CAP PO SCH (06:20)
[2017-11-14] MEDS: LEVOTHYROXINE SODIUM 0.1 MG TAB PO SCH (06:23)
[2017-11-14] MEDS: INSULIN LISPRO 100 UNITS/ML PEN SUBCU SCH ×4 (07:07→22:21)
[2017-11-14] MEDS ORDERED: predniSONE 10 MG TAB ONE (07:12)
[2017-11-14] MEDS ORDERED: cefTRIAXone SODIUM 1 GM VIAL ONE ×2 (07:13→19:20)
[2017-11-14] MEDS ORDERED: SODIUM CHL 0.9% 50ML MIN-BAG+ 50 ML IVPB ONE ×2 (07:13→19:20)
[2017-11-14] MEDS ORDERED: DOCUSATE SODIUM 100 MG CAP ONE (07:13)
[2017-11-14] MEDS ORDERED: FUROSEMIDE 40 MG TAB ONE (07:13)
[2017-11-14] MEDS ORDERED: ENOXAPARIN SODIUM 30 MG/0.3 ML SYG SUBCU ONE (07:13)
[2017-11-14] MEDS: POTASSIUM CHLORIDE 10 MEQ TAB PO SCH (07:41)
[2017-11-14] MEDS: DOCUSATE SODIUM 100 MG CAP PO SCH (08:09)
[2017-11-14] MEDS: BIFIDOBACTERIUM INFANTIS 4 MG CAP PO SCH ×2 (08:09→20:00)
[2017-11-14] MEDS: predniSONE 10 MG TAB PO SCH (08:10)
[2017-11-14] MEDS: MULTIPLE VITAMINS W/ MINERALS 1 EA TAB PO SCH (08:10)
[2017-11-14] MEDS: ENOXAPARIN SODIUM 30 MG/0.3 ML SYG SUBCU SCH (08:10)
[2017-11-14] MEDS: SODIUM CHLORIDE 0.9% (FLUSH) 10 ML SYG IV SCH ×2 (08:11→19:57)
[2017-11-14] MEDS: FUROSEMIDE 40 MG TAB PO SCH (08:12)
[2017-11-14] MEDS: cefTRIAXone SODIUM 1 GM in SODIUM CHL 0.9% 50ML MIN-BAG+ 50 ML IVPB SCH ×2 (08:33→20:54)
[2017-11-14] MEDS: ALBUTEROL SULFATE 2.5 MG/3 ML VIAL NEB SCH ×4 (08:40→20:56)
[2017-11-15] MEDS: OMEPRAZOLE CAP 20 MG CAP PO SCH (06:31)
[2017-11-15] MEDS: LEVOTHYROXINE SODIUM 0.1 MG TAB PO SCH (06:31)
[2017-11-15] MEDS ORDERED: OMEPRAZOLE CAP 20 MG CAP ONE (07:30)
[2017-11-15] MEDS: INSULIN LISPRO 100 UNITS/ML PEN SUBCU SCH ×4 (07:33→21:23)
[2017-11-15] MEDS ORDERED: SODIUM CHL 0.9% 50ML MIN-BAG+ 50 ML IVPB ONE ×2 (07:40→19:39)
[2017-11-15] MEDS ORDERED: cefTRIAXone SODIUM 1 GM VIAL ONE ×2 (07:40→19:39)
[2017-11-15] MEDS: ALBUTEROL SULFATE 2.5 MG/3 ML VIAL NEB SCH ×4 (07:56→20:33)
[2017-11-15] MEDS: POTASSIUM CHLORIDE 10 MEQ TAB PO SCH (07:58)
[2017-11-15] MEDS: FUROSEMIDE 40 MG TAB PO SCH (09:09)
[2017-11-15] MEDS: BIFIDOBACTERIUM INFANTIS 4 MG CAP PO SCH ×2 (09:10→20:42)
[2017-11-15] MEDS: MULTIPLE VITAMINS W/ MINERALS 1 EA TAB PO SCH (09:12)
[2017-11-15] MEDS: DOCUSATE SODIUM 100 MG CAP PO SCH (09:12)
[2017-11-15] MEDS: predniSONE 10 MG TAB PO SCH (09:12)
[2017-11-15] MEDS: ENOXAPARIN SODIUM 30 MG/0.3 ML SYG SUBCU SCH (09:14)
[2017-11-15] MEDS: cefTRIAXone SODIUM 1 GM in SODIUM CHL 0.9% 50ML MIN-BAG+ 50 ML IVPB SCH ×2 (09:15→20:40)
[2017-11-15] MEDS: SODIUM CHLORIDE 0.9% (FLUSH) 10 ML SYG IV SCH ×2 (09:15→20:41)
[2017-11-16] MEDS: OMEPRAZOLE CAP 20 MG CAP PO SCH (06:01)
[2017-11-16] MEDS: LEVOTHYROXINE SODIUM 0.1 MG TAB PO SCH (06:01)
[2017-11-16] MEDS: INSULIN LISPRO 100 UNITS/ML PEN SUBCU SCH ×4 (07:07→20:55)
[2017-11-16] MEDS ORDERED: SODIUM CHL 0.9% 50ML MIN-BAG+ 50 ML IVPB ONE ×2 (07:55→19:10)
[2017-11-16] MEDS ORDERED: cefTRIAXone SODIUM 1 GM VIAL ONE ×2 (07:56→19:10)
[2017-11-16] MEDS: POTASSIUM CHLORIDE 10 MEQ TAB PO SCH (07:58)
[2017-11-16] MEDS: BIFIDOBACTERIUM INFANTIS 4 MG CAP PO SCH ×2 (08:00→20:55)
[2017-11-16] MEDS: cefTRIAXone SODIUM 1 GM in SODIUM CHL 0.9% 50ML MIN-BAG+ 50 ML IVPB SCH ×2 (08:00→20:57)
[2017-11-16] MEDS: predniSONE 10 MG TAB PO SCH (08:00)
[2017-11-16] MEDS: SODIUM CHLORIDE 0.9% (FLUSH) 10 ML SYG IV SCH ×2 (08:02→20:58)
[2017-11-16] MEDS: ENOXAPARIN SODIUM 30 MG/0.3 ML SYG SUBCU SCH (08:06)
[2017-11-16] MEDS: DOCUSATE SODIUM 100 MG CAP PO SCH (08:06)
[2017-11-16] MEDS: MULTIPLE VITAMINS W/ MINERALS 1 EA TAB PO SCH (08:09)
[2017-11-16] MEDS: FUROSEMIDE 40 MG TAB PO SCH (08:10)
[2017-11-16] MEDS: ALBUTEROL SULFATE 2.5 MG/3 ML VIAL NEB SCH ×4 (08:21→20:37)
[2017-11-16] MEDS: IV SET AND CAP CHANGE INJ INJ SCH (13:10)
[2017-11-17] MEDS: LEVOTHYROXINE SODIUM 0.1 MG TAB PO SCH (06:13)
[2017-11-17] MEDS: OMEPRAZOLE CAP 20 MG CAP PO SCH (06:13)
[2017-11-17] MEDS ORDERED: SODIUM CHL 0.9% 50ML MIN-BAG+ 50 ML IVPB ONE ×2 (07:18→19:42)
[2017-11-17] MEDS ORDERED: cefTRIAXone SODIUM 1 GM VIAL ONE ×2 (07:18→19:43)
[2017-11-17] MEDS: ALBUTEROL SULFATE 2.5 MG/3 ML VIAL NEB SCH ×4 (07:31→20:31)
[2017-11-17] MEDS: INSULIN LISPRO 100 UNITS/ML PEN SUBCU SCH ×4 (07:35→21:06)
[2017-11-17] MEDS: POTASSIUM CHLORIDE 10 MEQ TAB PO SCH (07:47)
[2017-11-17] MEDS: FUROSEMIDE 40 MG TAB PO SCH (08:51)
[2017-11-17] MEDS: DOCUSATE SODIUM 100 MG CAP PO SCH (08:51)
[2017-11-17] MEDS: predniSONE 10 MG TAB PO SCH (08:51)
[2017-11-17] MEDS: BIFIDOBACTERIUM INFANTIS 4 MG CAP PO SCH ×2 (08:51→20:43)
[2017-11-17] MEDS: MULTIPLE VITAMINS W/ MINERALS 1 EA TAB PO SCH (08:53)
[2017-11-17] MEDS: ENOXAPARIN SODIUM 30 MG/0.3 ML SYG SUBCU SCH (08:54)
[2017-11-17] MEDS: cefTRIAXone SODIUM 1 GM in SODIUM CHL 0.9% 50ML MIN-BAG+ 50 ML IVPB SCH ×2 (08:54→20:43)
[2017-11-17] MEDS: SODIUM CHLORIDE 0.9% (FLUSH) 10 ML SYG IV SCH ×2 (08:55→20:44)
[2017-11-18] MEDS: OMEPRAZOLE CAP 20 MG CAP PO SCH (06:09)
[2017-11-18] MEDS: LEVOTHYROXINE SODIUM 0.1 MG TAB PO SCH (06:09)
[2017-11-18] MEDS: ALBUTEROL SULFATE 2.5 MG/3 ML VIAL NEB SCH ×4 (08:07→20:44)
[2017-11-18] MEDS ORDERED: SODIUM CHL 0.9% 50ML MIN-BAG+ 50 ML IVPB ONE ×2 (08:10→19:19)
[2017-11-18] MEDS ORDERED: cefTRIAXone SODIUM 1 GM VIAL ONE ×2 (08:12→19:19)
[2017-11-18] MEDS: INSULIN LISPRO 100 UNITS/ML PEN SUBCU SCH ×4 (08:37→21:05)
[2017-11-18] MEDS: cefTRIAXone SODIUM 1 GM in SODIUM CHL 0.9% 50ML MIN-BAG+ 50 ML IVPB SCH ×2 (08:50→21:00)
[2017-11-18] MEDS: FUROSEMIDE 40 MG TAB PO SCH (08:51)
[2017-11-18] MEDS: BIFIDOBACTERIUM INFANTIS 4 MG CAP PO SCH ×2 (08:51→21:00)
[2017-11-18] MEDS: ENOXAPARIN SODIUM 30 MG/0.3 ML SYG SUBCU SCH (08:51)
[2017-11-18] MEDS: DOCUSATE SODIUM 100 MG CAP PO SCH (08:52)
[2017-11-18] MEDS: MULTIPLE VITAMINS W/ MINERALS 1 EA TAB PO SCH (08:52)
[2017-11-18] MEDS: POTASSIUM CHLORIDE 10 MEQ TAB PO SCH (08:52)
[2017-11-18] MEDS: SODIUM CHLORIDE 0.9% (FLUSH) 10 ML SYG IV SCH ×2 (08:53→21:00)
[2017-11-19] MEDS: LEVOTHYROXINE SODIUM 0.1 MG TAB PO SCH (06:01)
[2017-11-19] MEDS: OMEPRAZOLE CAP 20 MG CAP PO SCH (06:01)
[2017-11-19] MEDS: ALBUTEROL SULFATE 2.5 MG/3 ML VIAL NEB SCH ×3 (07:13→20:54)
[2017-11-19] MEDS ORDERED: cefTRIAXone SODIUM 1 GM VIAL ONE ×2 (07:23→19:58)
[2017-11-19] MEDS ORDERED: SODIUM CHL 0.9% 50ML MIN-BAG+ 50 ML IVPB ONE ×2 (07:23→19:57)
[2017-11-19] MEDS: INSULIN LISPRO 100 UNITS/ML PEN SUBCU SCH ×4 (07:54→21:46)
[2017-11-19] MEDS: POTASSIUM CHLORIDE 10 MEQ TAB PO SCH (07:55)
[2017-11-19] MEDS: FUROSEMIDE 40 MG TAB PO SCH (09:08)
[2017-11-19] MEDS: MULTIPLE VITAMINS W/ MINERALS 1 EA TAB PO SCH (09:08)
[2017-11-19] MEDS: cefTRIAXone SODIUM 1 GM in SODIUM CHL 0.9% 50ML MIN-BAG+ 50 ML IVPB SCH ×2 (09:09→20:39)
[2017-11-19] MEDS: BIFIDOBACTERIUM INFANTIS 4 MG CAP PO SCH ×2 (09:11→20:37)
[2017-11-19] MEDS: DOCUSATE SODIUM 100 MG CAP PO SCH (09:11)
[2017-11-19] MEDS: ENOXAPARIN SODIUM 30 MG/0.3 ML SYG SUBCU SCH (09:11)
[2017-11-19] MEDS: SODIUM CHLORIDE 0.9% (FLUSH) 10 ML SYG IV SCH ×2 (09:12→20:39)
[2017-11-19] MEDS: IV SET AND CAP CHANGE INJ INJ SCH (14:30)
[2017-11-19] MEDS ORDERED: ALBUTEROL SULFATE 2.5 MG/3 ML VIAL NEB PRN (19:55)
[2017-11-20] MEDS: LEVOTHYROXINE SODIUM 0.1 MG TAB PO SCH (06:25)
[2017-11-20] MEDS: OMEPRAZOLE CAP 20 MG CAP PO SCH (06:26)
[2017-11-20] MEDS ORDERED: cefTRIAXone SODIUM 1 GM VIAL ONE (07:34)
[2017-11-20] MEDS ORDERED: SODIUM CHL 0.9% 50ML MIN-BAG+ 50 ML IVPB ONE (07:34)
[2017-11-20] MEDS: INSULIN LISPRO 100 UNITS/ML PEN SUBCU SCH ×4 (07:42→21:22)
[2017-11-20] MEDS: POTASSIUM CHLORIDE 10 MEQ TAB PO SCH (07:51)
[2017-11-20] MEDS: FUROSEMIDE 40 MG TAB PO SCH (08:36)
[2017-11-20] MEDS: BIFIDOBACTERIUM INFANTIS 4 MG CAP PO SCH ×2 (08:37→21:22)
[2017-11-20] MEDS: MULTIPLE VITAMINS W/ MINERALS 1 EA TAB PO SCH (08:37)
[2017-11-20] MEDS: ENOXAPARIN SODIUM 30 MG/0.3 ML SYG SUBCU SCH (08:37)
[2017-11-20] MEDS: DOCUSATE SODIUM 100 MG CAP PO SCH (08:37)
[2017-11-20] MEDS: cefTRIAXone SODIUM 1 GM in SODIUM CHL 0.9% 50ML MIN-BAG+ 50 ML IVPB SCH (08:38)
[2017-11-20] MEDS: SODIUM CHLORIDE 0.9% (FLUSH) 10 ML SYG IV SCH ×2 (08:49→21:22)
[2017-11-20] MEDS: ALBUTEROL SULFATE 2.5 MG/3 ML VIAL NEB SCH ×2 (08:51→20:40)
--- NOTE | 2017-11-20 10:51 | PN ---
DATE: 11/19/17 SUPERVISING PHYSICIAN: Jewel Toth M.D. SUBJECTIVE: The patient has been doing well with his physical therapy. He has been tolerating his antibiotic therapy and should finish tomorrow with his last day for total treatment course. He has been working well with Physical Therapy and his is anticipating hopefully that he will be able to go home. I did discuss with his daughter though that they are afraid that she cannot handle him at home and possibly maybe seeing if he would qualify for additional days in rehab or maybe a program such a [facility]. OBJECTIVE: VITAL SIGNS: He has been afebrile, temperature 97.2, pulse 79, blood pressure 118/76, respiratory rate 18, satting 93% on room air. His I's and O's have been fairly well balanced. Weight is 57.5 kg. CHEST: Lungs are clear to auscultation bilaterally. HEART: Regular rate and rhythm. ABDOMEN: Soft, non-tender. Positive bowel sounds. EXTREMITIES: No clubbing, cyanosis or edema. NEUROLOGIC: He is alert and oriented times three. He is severely ybtn-ba-hrflhmb. There is no laboratory or radiographic studies other than his blood sugars which have been fairly well controlled since admission to Swing Bed ranging from 57 up to 265. ASSESSMENT: 1. Bilateral pneumonia involving the right upper and lower left lobes community acquired with associated bacteremia secondary to Streptococcus pneumoniae infection with sensitivity showing to be sensitive to all but erythromycin with the patient showing good response to parenteral antibiotics on Rocephin to include a total 14 days course on the . 2. History of frequent falls secondary from severe deconditioning and weakness. 3. Diabetes mellitus type 2 on insulin therapy showing to be fairly stable. 4. Hypothyroidism on supplementation. 5. History of congestive heart failure with a diastolic dysfunction. Ejection fraction as noted on May 2015 at 55%. 6. History of atherosclerotic cardiovascular disease with peripheral vascular component with a previous total occlusion of left vertebral artery. 7. Chronic renal insufficiency improved with IV fluids. 8. History of non-Hodgkin's lymphoma in 2006 with radiation and other chemotherapies received. 9. History of Erdheim-[place] disease, a rare non-Langerhans cell histiocytosis. 10. History of macular degeneration possibly a complication of diabetes mellitus. 11. Significant hearing deficit with a mixed condition and sensorineural hearing loss bilaterally. 12. 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 13. History of weight loss of approximately 33 pounds within the last 3 months as noted by family members. 14. 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 PLAN: Will continue with his antibiotic therapy which should conclude tomorrow. Will continue to follow the patient as he progresses through his physical therapy efforts and reevaluate on a daily basis. 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 Will continue to reevaluate and anticipate discharge this coming week. Until then, continue to monitor and treat appropriately. #[id number] [facility]
[2017-11-20] MEDS ORDERED: HALOPERIDOL LACTATE INJ 5 MG/ML VIAL IM PRN (23:01)
[2017-11-21] MEDS: OMEPRAZOLE CAP 20 MG CAP PO SCH (06:11)
[2017-11-21] MEDS: LEVOTHYROXINE SODIUM 0.1 MG TAB PO SCH (06:11)
[2017-11-21] MEDS: ALBUTEROL SULFATE 2.5 MG/3 ML VIAL NEB SCH (08:28)
[2017-11-21 10:16] VITALS: BP 117/72; TEMP 98.4; O2SAT 94
[2017-11-21] MEDS ORDERED: cefTRIAXone SODIUM 1 GM VIAL ONE (10:32)
[2017-11-21] MEDS: INSULIN LISPRO 100 UNITS/ML PEN SUBCU SCH ×2 (13:32→13:33)
[2017-11-21] MEDS: POTASSIUM CHLORIDE 10 MEQ TAB PO SCH (13:37)
[2017-11-21] MEDS: BIFIDOBACTERIUM INFANTIS 4 MG CAP PO SCH (13:38)
[2017-11-21] MEDS: MULTIPLE VITAMINS W/ MINERALS 1 EA TAB PO SCH (13:38)
[2017-11-21] MEDS: ENOXAPARIN SODIUM 30 MG/0.3 ML SYG SUBCU SCH (13:38)
[2017-11-21] MEDS: FUROSEMIDE 40 MG TAB PO SCH (13:38)
[2017-11-21] MEDS: DOCUSATE SODIUM 100 MG CAP PO SCH (13:38)
[2017-11-21] MEDS: SODIUM CHLORIDE 0.9% (FLUSH) 10 ML SYG IV SCH (14:48)
--- NOTE | 2017-11-22 08:34 | DS ---
SUPERVISING PHYSICIAN: Simone Sotomayor MD ADMISSION DIAGNOSIS: 1. Bilateral pneumonia with associated pneumococcal bacteremia. 2. Frequent falls secondary to deconditioning and weakness. 3. Diabetes mellitus, type 2. 4. Altered mental status. 5. Hypothyroidism. 6. History of congestive heart failure with diastolic dysfunction. 7. Dehydration with renal insufficiency. DISCHARGE DIAGNOSIS: 1. Bilateral pneumonia with associated pneumococcal bacteremia, status post 14 day IV antibiotic completion. 2. Frequent falls secondary to severe deconditioning and weakness. 3. Diabetes mellitus, type 2. 4. Altered mental status, improved. 5. Hypothyroidism, on appropriate dosage of levothyroxine. 6. History of congestive heart failure with diastolic dysfunction without exacerbation. 7. Dehydration, improved. HOSPITAL COURSE: Mr. Marin is an 87-year-old male patient who was originally admitted to the hospital on 11/06/17 for bilateral pneumonia which showed also to have associated bacteremia. This was pneumococcal in nature and infectious disease was consulted. Their recommendation was that the patient have 14 days of IV antibiotics. Associated with the bilateral pneumonia, the patient was severely deconditioned. The patient was admitted to [facility] on . During this time, he got physical therapy along with his IV antibiotics. His mentation improved over this time and he was able to participate in physical therapy. However, he did not return to baseline in his strength. [facility] evaluation was initiated and the patient was accepted to [facility]. On 11/21/17, the patient is being discharged to [facility] for further rehab. Further physical therapy recommendations are per the [facility] team at this time. DISCHARGE CONDITION: Fair. DISCHARGE MEDICATIONS: Please see the transfer medication reconciliation record. DISPOSITION: Followup appointments will be made with the patient's primary care physician once he is discharged from [facility]. #[id number] [facility]
== END 2017-11-21 17:02 | DRG 194 ==
LOC: MS 12:00
PROVIDERS: ADMIT Emergency Medicine; ATTEND Nurse Practitioner
DX: J13 Pneumonia due to Streptococcus pneumoniae (principal); I50.32 Chronic diastolic (congestive) heart failure; E46 Unspecified protein-calorie malnutrition; I13.0 Hypertensive heart and chronic kidney disease with heart failure and stage 1 through stage 4 chronic kidney disease, or unspecified chronic kidney disease; Z68.1 Body mass index [BMI] 19.9 or less, adult; R29.6 Repeated falls; N28.9 Disorder of kidney and ureter, unspecified; E87.6 Hypokalemia; E83.42 Hypomagnesemia; E11.9 Type 2 diabetes mellitus without complications; I25.10 Atherosclerotic heart disease of native coronary artery without angina pectoris; E11.51 Type 2 diabetes mellitus with diabetic peripheral angiopathy without gangrene; I65.02 Occlusion and stenosis of left vertebral artery; E86.0 Dehydration; E11.22 Type 2 diabetes mellitus with diabetic chronic kidney disease; N18.9 Chronic kidney disease, unspecified; R74.8 Abnormal levels of other serum enzymes; E11.39 Type 2 diabetes mellitus with other diabetic ophthalmic complication; H35.30 Unspecified macular degeneration; H90.6 Mixed conductive and sensorineural hearing loss, bilateral; R63.0 Anorexia; E78.5 Hyperlipidemia, unspecified; E89.0 Postprocedural hypothyroidism; Z66 Do not resuscitate; E88.2 Lipomatosis, not elsewhere classified; Z85.72 Personal history of non-Hodgkin lymphomas; Z92.21 Personal history of antineoplastic chemotherapy; Z92.3 Personal history of irradiation; Z79.4 Long term (current) use of insulin; Z79.899 Other long term (current) drug therapy; Z87.891 Personal history of nicotine dependence

== ENCOUNTER 2017-12-06 10:42 | Inpatient (IN) | payer MEDICARE, OTHER ==
--- NOTE | 2017-12-06 11:57 | ED.PDOC ---
History of Present Illness - General Chief Complaint: Abdominal Pain Stated Complaint: ABDOMINAL PAIN Time Seen by Provider: 12/06/17 11:14 Information Source: patient, family Additional Information: THIS PATIENT COMES TO THE ED WITH A THREE DAY HISTORY OF ABDOMINAL PAIN. THE PATIENT IS HEARING IMPAIRED AND A POOR HISTORIAN. THE INFORMATION IS OBTAINED FROM THE WHO IS AT THE BEDSIDE. HE HAD ABDOMINAL SURGERY IN [facility] ABOUT THREE YEARS AGO. THE CANNOT TELL ME WHAT WAS DONE, BUT THE SYMPTOMS SEEM SIMILAR. HE HAS DIFFUSE ABDOMINAL PAIN AND HAD HAD VOMITING SEVERAL TIMES. HE HAS ALSO HAD A NORMAL BOWEL MOVEMENT, DENIES FEVER. THE PATIENT WAS DISCHARGED FROM THE REHAB HOSPITAL THIS PAST TUESDAY, WHEN THE SYMPTOMS WORSENED. THE SAYS THAT HE HAS BEEN HAVING PAIN FOR THE PAST TWO WEEKS. Review of Systems - Review of Systems Constitutional: States: malaise EENTM: States: no symptoms reported Respiratory: States: no symptoms reported Cardiology: States: no symptoms reported Gastrointestinal/Abdominal: States: abdominal pain, nausea, vomiting Genitourinary: States: no symptoms reported Musculoskeletal: States: no symptoms reported Skin: States: no symptoms reported Neurological: States: no symptoms reported Endocrine: States: no symptoms reported Hematologic/Lymphatic: States: no symptoms reported Past Medical History (General) - Patient Medical History Hx Seizures: No Hx Stroke: No Hx Asthma: No Hx of COPD: No Hx Cardiac Disorders: Yes Hx Congestive Heart Failure: No Hx Pacemaker: No Hx Hypertension: No Hx Thyroid Disease: Yes Hx Diabetes: Yes Hx Cancer: Yes - lymphoma Hx MRSA: No Surgical History: other Other Surgeries:: CELIOTOMY - Vaccination History Hx Tetanus, Diphtheria Vaccination: Yes Hx Influenza Vaccination: No Hx Pneumococcal Vaccination: No - Social History Hx Tobacco Use: No - Quit around 1949 - social use Hx Alcohol Use: No Hx Substance Use: No Hx Physical Abuse: No Hx Emotional Abuse: No Family Medical History - Family History Father Family History: No Known Living Status: Age at (years of age): 70 Cause of : alzeimers Mother Living Status: Age at (years of age): 70 Hx Family Asthma: No Hx Family Congestive Heart Failure: No Hx Family Hypertension: No Hx Family Stroke: No Hx Cardiac Disease: No Hx Family Diabetes: No Hx Family Cancer: Yes - lung Physical Exam - Physical Exam General Appearance: Alert, Frail, Ill Appearing, Well Hydrated Eyes, Ears, Nose, Throat Exam: PERRL/EOMI, normal ENT inspection, TMs normal, pharynx normal Neck: non-tender, full range of motion, supple, normal inspection Respiratory: chest non-tender, lungs clear, normal breath sounds, no respiratory distress, no accessory muscle use Cardiovascular/Chest: normal peripheral pulses, regular rate, rhythm, no edema, no gallop, no JVD, no murmur Peripheral Pulses: 3+ Gastrointestinal/Abdominal: no pulsatile mass, guarding, tenderness - DIFFUSE ABDOMINAL PAIN WITH GUARDING AND REBOUND TENDERNESS. HE HAS A VENTRAL HERNIA. , hernia Rectal Exam: deferred Back Exam: normal inspection Extremity: normal range of motion, non-tender, normal inspection Neurologic: no motor/sensory deficits, alert, oriented x 3 Progress - Results/Orders Results/Orders: THE LAB AND IMAGING ARE REPORTED. WBC OF 3.1. THE CREATININE WAS 1.55. ABDOMINAL SERIES CONSISTENT WITH FREE INTRA-PERITONEAL AIR-SUGGESTIVE OF PERFORATED VISCUS. I HAVE DISCUSSED THE CASE WITH DR. NICK AND HE IS COMING TO THE ED TO TALK TO THE FAMILY. DR NICK HAS SPOKEN TO THE FAMILY AND HE WILL BE ADMITTED UNDER HOSPICE -[facility] WHAT CHEER Departure - Departure Clinical Impression: Pneumoperitoneum of unknown etiology Abdominal pain Qualifiers: Abdominal location: generalized Qualified Code(s): R10.84 - Generalized abdominal pain Time of Disposition: 13:22 Disposition: Admit Patient Condition: Serious Referrals: Giorgio Escobedo III, MD [Primary Care Provider] - 1-2 Weeks Home Medications: Ambulatory Orders Levothyroxine Sodium [Synthroid] 0.2 mg PO DAILY@0630 tab 11/21/17 Potassium Chloride Tab [Micro-K] 10 meq PO DAILYBK tab 11/21/17 Insulin Glargine [Lantus Solostar] 6 unit SC QAM 12/06/17 Rosuvastatin Calcium [Crestor] 20 mg PO DAILY 12/06/17 Decision To Admit - Decistion To Admit Decision to Admit Reason: Admit from ER Decision to Admit Date: 12/06/17 - HOSPICE ADMIT Decision to Admit Time: 13:21
--- NOTE | 2017-12-06 12:24 | RAD ---
EXAM DESCRIPTION: Obstructive series, 3 radiographs CLINICAL HISTORY: Abdomen pain FINDINGS/ IMPRESSION: Scattered large and small intestinal bowel gas without mechanical bowel obstruction. Free intraperitoneal air, large volume beneath the hemidiaphragms. This is concerning for perforation of bowel. Recommend CT abdomen for further evaluation Heart size normal. Atherosclerotic aorta. Paucity of vascular markings in the lung apices suggesting emphysema is with some minimal linear scarring. No alveolar consolidation or pleural effusion. No pneumothorax Electronically signed by: Simone Melton MD 12/06/2017 12:23 PM [facility]
[2017-12-06] MEDS ORDERED: SODIUM CHLORIDE 0.9% 100ML 100 ML IVPB ONE ×2 (12:53→13:01)
[2017-12-06] MEDS: SODIUM CHLORIDE 0.9% 1000ML 1,000 ML IVS PRN (12:53)
[2017-12-06] MEDS ORDERED: PIPERACILLIN/TAZOBACTAM 3.375 GM VIAL IVPB ONE (12:53)
[2017-12-06] MEDS: PIPERACILLIN/TAZOBACTAM 3.375 GM in SODIUM CHLORIDE 0.9% 100ML 100 ML IVPB ONE ×2 (12:54→14:01)
[2017-12-06] MEDS ORDERED: SODIUM CHLORIDE 0.9% (FLUSH) 10 ML SYG IV PRN (14:19)
[2017-12-06] MEDS ORDERED: IV SET AND CAP CHANGE INJ INJ SCH (14:30)
[2017-12-06] MEDS ORDERED: MORPHINE SULFATE INJ 10 MG/ML VIAL IV PRN (16:15)
--- NOTE | 2017-12-06 19:01 | PCM.CORE ---
Physician DVT/VTE - Contraindications Mechanical Device Contraindication: Treatment not indicated - Hospice care and comfort - Nurse DVT Assessment & Total Each Risk Factor Represents 3 Points: Age over 75 years DVT Assessment Score: 3
--- NOTE | 2017-12-06 22:12 | HP ---
SUPERVISING PHYSICIAN: Simone Sotomayor M.D. CHIEF COMPLAINT: Abdominal pain. HISTORY OF PRESENT ILLNESS: Mr. Marin is an 87 year-old male patient that presented to the [facility] this morning with a 3 day history of severe abdominal pain. The patient had been recently in our hospital for pneumonia and Streptococcal bacteremia. He was successfully treated and transferred after Acute Care to [facility] for ongoing rehab. Apparently he was discharged from rehab this past weekend. The noted that he had diffuse abdominal pain and vomited several times since discharge. She says that she noted that he has been having some kind of pain over the last 2 weeks and he does have a history of previously having a small bowel volvulus with 50 inch of resection of the colon in 2013 as well as he had a weight loss of approximately 33 pounds within the last 3 months. An x-ray of his abdomen this morning showed that there was free intraperitoneal air with large volume beneath the hemidiaphragms concerning for a perforation of bowel. This was followed-up with a consultation with Dr. Mayer, general surgeon, after which time after lengthy discussion with the family, the treatment course was decided that the patient would be best served by going on to hospice care for care and comfort measures as he was a poor candidate for surgical intervention given his multiple co-morbidities and advanced age. Dr. Mayer made arrangements for a hospice consultation with [facility] and the patient has now been admitted to hospice inpatient care for care and comfort measures under the guidance of [facility]. PAST MEDICAL HISTORY: 1. Hyperlipidemia. 2. Hypertension with diastolic dysfunction with ejection fraction of 55% on echo in 2017. 3. Recent hospitalization for Streptococcal bacteremia with bilateral pneumonia. 4. Peripheral vascular disease. 5. 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 6. 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 8. Type 2 diabetes mellitus on insulin therapy. 9. Hypothyroidism diagnosed in 1977 after an iodine 131 ablation with the patient on supplementation. 10. History of shingles to the left chest. 11. Non-Hodgkin's lymphoma diagnosed in 2006 treated initially with radiation and recurrence with diffuse lymphadenopathy as noted on CT scans in 2012 with treatment with Rituxan. 12. Macular degeneration. 13. 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 14. 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 15. 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 16. Chronic renal insufficiency. PAST SURGICAL HISTORY: 1. Bilateral cataract removal. 2. Bilateral carotid endarterectomy in 2005. 3. Right lymph node excision complicated by a seroma following radiation treatments for non-Hodgkin's lymphoma. 4. Left knee arthroscopy with partial medial meniscectomy and ablation chondroplasty in 2008. 5. 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 CURRENT MEDICATIONS PRIOR TO ADMISSION TO HOSPICE: 1. Synthroid. 2. Potassium chloride. 3. Crestor. 4. Lantus. 5. Lasix. 6. Vitamin B12. 7. Jtid-dkl-khrfkho iron supplementation. ALLERGIES: NO KNOWN DRUG ALLERGIES. FAMILY HISTORY: The patient's father is at age 81 secondary to diabetes and cardiovascular disease. Mother was at age 69 from metastatic cancer of unknown origin. He has 3 sisters, 2 are from colon cancer and 1 from alcoholism, smoking, COPD and TB. He has had several paternal uncles with diabetes and amputations. 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 He was in the [employer] from 1949 to 1953 serving in [facility] and [place]. He is and has 2 children. He resides in [place], [place]. He has a history of smoking 2 to 3 packs a day for 16 years and quit at age 35. He does have a history of drinking while he was in the but no longer is drinking. REVIEW OF SYSTEMS: Difficult to obtain secondary to the patient's decreased mental status. As per family members: CONSTITUTIONAL: States general malaise over the last multiple months from previous hospitalizations HEENT: No noted symptoms reported. RESPIRATORY: He has no report of shortness of breath, wheezing. CARDIOVASCULAR: No reported chest pains, palpitations, syncopal episodes. GASTROINTESTINAL: As noted in the History of Present Illness with abdominal pain, nausea and vomiting. GENITOURINARY: No reported dysuria, hematuria or other urinary symptoms. MUSCULOSKELETAL: Ongoing weakness having just recently finished a rehab stint at [facility]. NEUROLOGIC: Decreased mentation within the last day or so. PHYSICAL EXAMINATION: VITAL SIGNS: Temperature 97.8, pulse 113, blood pressure 116/69, respirations 22, satting 98% on room air. Admission weight is 63.5 kg which is increased from his previous hospitalization which was 57.7 kg. GENERAL: On admission to the Medical/Surgical floor, the patient appears to be comfortable in no acute distress, but he does appear very ill-appearing and frail, but he is alert, well hydrated. HEENT: Tympanic membranes were clear bilaterally. Oropharynx was pink and moist without any lesions. NECK: Non-tender. Full range of motion with no jugular venous distention. CHEST: Lungs were clear to auscultation bilaterally without any rhonchi, wheezing or rales. CARDIOVASCULAR: Regular rate and rhythm without appreciable murmurs, gallops, or rubs. ABDOMEN: There was notable diffuse abdominal pain with guarding and rebound tenderness with a large ventral hernia. EXTREMITIES: No clubbing, cyanosis or edema. NEUROLOGIC: He is alert and oriented times three with no obvious motor deficits. LABORATORY STUDIES: White count 3.7 with hemoglobin 13.3, hematocrit 40.4, platelet count 261,000. Differential shows a left shift. Coagulation studies showed an abnormal PT at 21.9 and abnormal PTT of 42.4. Chemistries shows a lot potassium of 3.5, BUN 60, creatinine 1.55. Liver functions showed an elevated bilirubin at 1.4 with AST at 695, ALT at 571. Lipase was normal at 14. There was no microbiology. No urinalysis. RADIOLOGY: Radiographic studies completed initially in the [facility]. [facility] included an abdominal x-ray that showed free intraperitoneal air, large volume beneath the hemidiaphragms concerning for perforation of bowel. Lungs: There was a paucity of vascular markings in the lung apices suggesting emphysema with some minimal linear scarring. No alveolar consolidation or pleural effusion. No pneumothorax. No additional imaging was completed as the patient is being changed to hospice for care and comfort measures after consultation with Dr. Mayer, general surgeon and family. ASSESSMENT: 1. Abdominal pain with pneumoperitoneum likely a perforated bowel. 2. Neutropenia with a left shift likely secondary to underlying infectious process due to a perforated bowel. 3. Multiple co-morbidities. 4. Hyperlipidemia. 5. Hypertension with grade 1 diastolic dysfunction. 6. Peripheral vascular disease 7. Total occlusion of left vertebral artery. 8. Hepatitis. 9. History of Erdheim-[place] disease, a rare iih-Pydncjjiku-ligt histiocytosis. 10. Type 2 diabetes mellitus on insulin therapy. 11. Hypothyroidism on supplementation. 12. Non-Hodgkin's lymphoma diagnosed in 2017 treated with recurrence in 2012. 13. Macular degeneration. 14. Severe hearing loss with a mixed conductive and sensorineural component. 15. Severe pancreatic lipomatosis by history and MRI of colonograph in 2014. PLAN: Dr. Mayer has visited with the family after consultation in the E. R[facility] and given the patient's multiple co-morbidities and advanced age, he is not a surgical candidate. Dr. Mayer discussed with the family going to hospice care and after lengthy discussion the plan of care was to admit the patient to [facility] for care and comfort measures. [facility] has seen the patient and written orders. Will continue to follow the patient and be available if needed. His progress is grim with not unexpected. Until then, length of stay estimated to be between 1 to 3 days. Until then, will continue to follow the patient as needed and monitor closely. Dr. Escobedo is his primary care physician and he has been notified of the patient being admitted to hospice care. #[id number] [facility]
[2017-12-06 23:37] VITALS: O2SAT 96
[2017-12-07] MEDS: SODIUM CHLORIDE 0.9% 1000ML 1,000 ML IVS PRN (05:54)
[2017-12-07] MEDS ORDERED: MORPHINE SULFATE INJ 10 MG/ML VIAL IV SCH (17:00)
[2017-12-07 18:29] VITALS: BP 106/62; TEMP 97.1
--- NOTE | 2017-12-08 17:57 | DS ---
SUPERVISING PHYSICIAN: Simone Sotomayor M.D. DISCHARGE DIAGNOSIS: 1. . HISTORY OF PRESENT ILLNESS: Mr. Marin is an 87 year-old male patient that presented to the [facility] this morning with a 3 day history of severe abdominal pain. The patient had been recently in our hospital for pneumonia and Streptococcal bacteremia. He was successfully treated and transferred after Acute Care to [facility] for ongoing rehab. Apparently he was discharged from rehab this past weekend. The noted that he had diffuse abdominal pain and vomited several times since discharge. She says that she noted that he has been having some kind of pain over the last 2 weeks and he does have a history of previously having a small bowel volvulus with 50 inch of resection of the colon in 2013 as well as he had a weight loss of approximately 33 pounds within the last 3 months. An x-ray of his abdomen this morning showed that there was free intraperitoneal air with large volume beneath the hemidiaphragms concerning for a perforation of bowel. This was followed-up with a consultation with Dr. Mayer, general surgeon, after which time after lengthy discussion with the family, the treatment course was decided that the patient would be best served by going on to hospice care for care and comfort measures as he was a poor candidate for surgical intervention given his multiple co-morbidities and advanced age. Dr. Mayer made arrangements for a hospice consultation with [facility] and the patient has now been admitted to hospice inpatient care for care and comfort measures under the guidance of [facility]. HOSPITAL COURSE: Dr. Mayer had made arrangements for hospice consultation with [facility]. The patient was admitted to hospice inpatient care for care and comfort measures under the guidance of [facility]. He this evening on 12/07/17. [facility] pronounced the patient . Dr. Sotomayor is the collaborating physician available for consultation. #[id number] [facility]
== END 2017-12-07 22:38 | disposition expired | DRG 395 ==
LOC: ER 10:42 → MS 13:41
PROVIDERS: ADMIT Nurse Practitioner Family; ATTEND Nurse Practitioner Acute Care
DX: K63.1 Perforation of intestine (nontraumatic) (principal); E78.5 Hyperlipidemia, unspecified; I73.9 Peripheral vascular disease, unspecified; E88.89 Other specified metabolic disorders; E11.9 Type 2 diabetes mellitus without complications; E03.9 Hypothyroidism, unspecified; H90.8 Mixed conductive and sensorineural hearing loss, unspecified; N18.9 Chronic kidney disease, unspecified; I12.9 Hypertensive chronic kidney disease with stage 1 through stage 4 chronic kidney disease, or unspecified chronic kidney disease; D70.9 Neutropenia, unspecified; I65.02 Occlusion and stenosis of left vertebral artery; H35.30 Unspecified macular degeneration; Z66 Do not resuscitate; Z51.5 Encounter for palliative care; Z85.72 Personal history of non-Hodgkin lymphomas; Z79.4 Long term (current) use of insulin; Z87.891 Personal history of nicotine dependence